=== PATIENT | male | born 1930 | race Caucasian/White ===

== ENCOUNTER 2019-05-04 09:23 | Inpatient (IN) | payer MEDICARE, BC ==
[~2019-05-04] VITALS: Ht 177.8 cm; Wt 57.2 kg
[2019-05-04 09:52] LABS: BASO % 0 % (0-3); EOS % 0 % (0-3); HEMOGLOBIN 10.8 g/dL (13.0-17.5); LYMPH # 0.8 x10^3/uL (1.0-4.8); LYMPH % 7 % (24-48); MEAN CORPUSCULAR HEMOGLOBIN 33 pg (25-35); MEAN CORPUSCULAR HGB CONC 34 g/dL (31-37); MEAN CORPUSCULAR VOLUME 96 fL (79-100); MONO # 1.1 x10^3/uL (0.0-1.1); MONO % 10 % (0-9); NEUT % 83 % (31-73); PLATELET COUNT 203 x10^3/uL (140-400); RED BLOOD COUNT 3.32 x10^6/uL (4.30-5.70); RED CELL DISTRIBUTION WIDTH 17.9 % (11.5-14.5); WHITE BLOOD COUNT 10.8 x10^3/uL (4.0-11.0)
[2019-05-04 10:00] LABS: CALCIUM 9.4 mg/dL (8.5-10.1); CREATININE 2.2 mg/dL (0.7-1.3); GFR 28.4; POTASSIUM 4.4 mmol/L (3.5-5.1)
[2019-05-04 10:15] LABS: ALBUMIN 2.6 g/dL (3.4-5.0); ALBUMIN/GLOBULIN RATIO 0.4 (1.0-1.7); MAGNESIUM 2.3 mg/dL (1.8-2.4); TOTAL BILIRUBIN 0.9 mg/dL (0.2-1.0); TOTAL PROTEIN 8.4 g/dL (6.4-8.2)
[2019-05-04 10:16] LABS: PROTHROMBIN TIME PATIENT 14.9 SEC (11.7-14.0)
--- NOTE | 2019-05-04 10:24 | RAD ---
Examination: CT HEAD WO CONTRAST History: Acute loss of consciousness Comparison/Correlation: None Findings: Axial images of the head were obtained without contrast. Atrophy is notable. Chronic ischemic change of the white matter is present. Bifrontal subdural hygromas are present. Right medial maxillary sinus wall defect is noted. Correlate with surgical history. Minimal polyp involvement of the ethmoid air cells noted. No depressed fracture. Impression: No intracranial hemorrhage. Oral PQRS Compliance Statement: One or more of the following individualized dose reduction techniques were utilized for this examination: 1. Automated exposure control 2. Adjustment of the mA and/or kV according to patient size 3. Use of iterative reconstruction technique Electronically signed by: Stefan Teran MD (05/04/2019 10:20 AM) [facility]
--- NOTE | 2019-05-04 10:29 | PHYS DOC ---
Past Medical History Past Medical History: No Pertinent History Past Surgical History: Other Additional Past Surgical Histo: hernia repair, hand surgery with hardware Additional Information: 1 ppd Alcohol Use: None Drug Use: None Adult General Chief Complaint Chief Complaint: ALTERED MENTAL STATUS HPI HPI Patient is a 88 year old male without known medical history who presents via EMS with complaint of confusion and fall. EMS reported that patient states he slipped from a chair last night around 9 PM and was not able to get up and was on the floor all night patient was agitated and confused this morning and his finally decided to call 911. EMS reported that patient had O2 sats of 85% at room air that improved with 2 L of nasal cannula to 95%. Patient is not able to give history and EMS reported that he was alert and oriented previously but patient's family stated that he has had increasing of confusion and memory loss for the last 7 months that getting worse today. Patient hasn't seen by a physician for many years and currently smokes cigarettes. Review of Systems Review of Systems Unable to obtain because of confusion Current Medications Current Medications Allergies Allergies Allergies Coded Allergies Type Severity Reaction Last Updated Verified No Known Drug Allergies 05/04/19 No Physical Exam Physical Exam Constitutional: Well nourished, moderate distress, non-toxic appearance. [] HENT: Normocephalic, atraumatic, bilateral external ears normal, oropharynx dry, no oral exudates, nose normal. [] Eyes: PERRLA, EOMI, conjunctiva normal, no discharge. [] Neck: Normal range of motion, no tenderness, supple, no stridor. [] Cardiovascular: Tachycardia, no murmur [] Lungs & Thorax: Decrease of bilateral air movement and rhonchi Abdomen: Bowel sounds normal, soft, no tenderness, no masses, no pulsatile masses. [] Skin: Warm, dry, no erythema, no rash. [] Back: No tenderness, no CVA tenderness. [] Extremities: No tenderness, no cyanosis, no clubbing, ROM intact, no edema. [] Neurologic: Alert and oriented X 1, normal motor function, normal sensory function, no focal deficits noted. [] Psychologic: Affect agitated. Current Patient Data Vital Signs Vital Signs Date Time Temp Pulse Resp B/P (MAP) Pulse Ox O2 Delivery O2 Flow Rate FiO2 05/04/19 09:30 98.7 88 22 138/77 (97) 88 Room Air 98.7 Lab Values Laboratory Tests Test 05/04/19 09:35 White Blood Count 10.8 x10^3/uL (4.0-11.0) Red Blood Count 3.32 x10^6/uL (4.30-5.70) L Hemoglobin 10.8 g/dL (13.0-17.5) L Hematocrit 32.0 % (39.0-53.0) L Mean Corpuscular Volume 96 fL (79-100) Mean Corpuscular Hemoglobin 33 pg (25-35) Mean Corpuscular Hemoglobin Concent 34 g/dL (31-37) Red Cell Distribution Width 17.9 % (11.5-14.5) H Platelet Count 203 x10^3/uL (140-400) Neutrophils (%) (Auto) 83 % (31-73) H Lymphocytes (%) (Auto) 7 % (24-48) L Monocytes (%) (Auto) 10 % (0-9) H Eosinophils (%) (Auto) 0 % (0-3) Basophils (%) (Auto) 0 % (0-3) Neutrophils # (Auto) 9.0 x10^3/uL (1.8-7.7) H Lymphocytes # (Auto) 0.8 x10^3/uL (1.0-4.8) L Monocytes # (Auto) 1.1 x10^3/uL (0.0-1.1) Eosinophils # (Auto) 0.0 x10^3/uL (0.0-0.7) Basophils # (Auto) 0.0 x10^3/uL (0.0-0.2) Prothrombin Time 14.9 SEC (11.7-14.0) H Prothrombin Time INR 1.2 (0.8-1.1) H Activated Partial Thromboplast Time 26 SEC (24-38) Sodium Level 135 mmol/L (136-145) L Potassium Level 4.4 mmol/L (3.5-5.1) Chloride Level 100 mmol/L (98-107) Carbon Dioxide Level 19 mmol/L (21-32) L Anion Gap 16 (6-14) H Blood Urea Nitrogen 34 mg/dL (8-26) H Creatinine 2.2 mg/dL (0.7-1.3) H Estimated GFR (Cockcroft-Gault) 28.4 BUN/Creatinine Ratio 15 (6-20) Glucose Level 98 mg/dL (70-99) Lactic Acid Level 4.1 mmol/L (0.4-2.0) *H Calcium Level 9.4 mg/dL (8.5-10.1) Magnesium Level 2.3 mg/dL (1.8-2.4) Total Bilirubin 0.9 mg/dL (0.2-1.0) Aspartate Amino Transferase (AST) 50 U/L (15-37) H Alanine Aminotransferase (ALT) 23 U/L (16-63) Alkaline Phosphatase 221 U/L (46-116) H Ammonia 18 mcmol/L (11-34) Creatine Kinase 1669 U/L (39-308) H Troponin I Quantitative 0.132 ng/mL (0.000-0.055) AL-Dnx-E-Type Natriuretic Peptide 3317 pg/mL (0-449) H Total Protein 8.4 g/dL (6.4-8.2) H Albumin 2.6 g/dL (3.4-5.0) L Albumin/Globulin Ratio 0.4 (1.0-1.7) L Ethyl Alcohol Level < 10 mg/dL (0-10) Laboratory Tests 05/04/19 09:35 Laboratory Tests 05/04/19 09:35 EKG EKG EKG interpreted by me. EKG at 0932 showed sinus tachycardia at rate of 108, left atrial abnormality, abnormal left axis deviation, low voltage QRS, left anterior fascicular block, poor R-wave progress in anteroseptal leads, no acute ST and T-wave elevation, normal NE and QT intervals, multiple artifact. Radiology/Procedures Radiology/Procedures [facility] [address] [place] [address] IMAGING REPORT Signed PATIENT: EMY US CACCOUNT: [id number] : 1930 LOCATION: ER AGE: 88 SEX: M EXAM STATUS: REG ER ORD. PHYSICIAN: SKYLER MEDEL MD REASON: ALOC PROCEDURE: CT HEAD WO CONTRAST Examination: CT HEAD WO CONTRAST History: Acute loss of consciousness Comparison/Correlation: None Findings: Axial images of the head were obtained without contrast. Atrophy is notable. Chronic ischemic change of the white matter is present. Bifrontal subdural hygromas are present. Right medial maxillary sinus wall defect is noted. Correlate with surgical history. Minimal polyp involvement of the ethmoid air cells noted. No depressed fracture. Impression: No intracranial hemorrhage. Oral PQRS Compliance Statement: One or more of the following individualized dose reduction techniques were utilized for this examination: 1. Automated exposure control 2. Adjustment of the mA and/or kV according to patient size 3. Use of iterative reconstruction technique Electronically signed by: Stefan Spain MD (05/04/2019 10:20 AM) [facility] [address] [place], [place] [id number] IMAGING REPORT Signed PATIENT: EMY US CACCOUNT: [id number] : 1930 LOCATION: ER AGE: 88 SEX: M EXAM STATUS: REG ER ORD. PHYSICIAN: SKYLER MEDEL MD REASON: ALOC PROCEDURE: PORTABLE CHEST 1V Examination: PORTABLE CHEST 1V History: Acute loss of consciousness Comparison/Correlation: None Findings: Upright frontal view of the chest were obtained. Heart size is normal. Emphysematous involvement of the lung coronado appears be present with a large bulla at the right apex. No pneumothorax identified. Interstitial thickening in the lung coronado is noted especially on the right. Dextroconvexity of the thoracic spine is present. The lateral convexity of the lower thoracic and upper lumbar spine noted. High riding bilateral lateral humeral heads noted. Undersurface remodeling of the right acromion. No acute fracture identified. Pulmonary hyperinflation suspected. Impression: Interstitial thickening of the lung coronado greater on the right. This may be chronic. Correlate with prior exams. Emphysematous involvement of the lung coronado. Pulmonary inflation. Electronically signed by: Stefan Spain MD (05/04/2019 10:24 AM) [facility] DICTATED and SIGNED BY: STEFAN SPAIN MD DATE: 05/04/19 1024 Course & Med Decision Making Course & Med Decision Making Pertinent Labs and Imaging studies reviewed. (See chart for details) Evaluation of patient in ER showed 88-year-old male patient who hasn't been seen by a physician for several years brought in by EMS because of confusion after a fall and spending all night on the floor. Patient was oriented 1 and agitated. Patient had hypoxia prior to arrival to ER and started on oxygen. Patient did not have fever or hypotension. Lactic acid was 4.1 and sepsis protocol was started with giving 30 mL/KG IV fluid and starting antibiotic. Because of agitation patient treated with 1 mg of Ativan with improvement of his agitation. Patient requiring admission for further evaluation and treatment. Discussed with Dr. Villalpando who is in agreement with admission. Discussed findings and plan with patient and family, who acknowledge understanding and agreement. Dragon Disclaimer Dragon Disclaimer This electronic medical record was generated, in whole or in part, using a voice recognition dictation system. Departure Departure Impression: Primary Impression: Severe sepsis Additional Impressions: Altered level of consciousness Renal insufficiency Anemia Elevated troponin I level Rhabdomyolysis Elevated liver function tests Elevated brain natriuretic peptide (BNP) level Hypoalbuminemia Disposition: ADMITTED INPATIENT (at 1048) Admitting Physician: CRYSTAL (Dr. Villalpando accepted admission at 1047) Condition: GUARDED Referrals: NO PCP (PCP) Critical Care Time Critical care time was 80 minutes exclusive of procedures. Date and Time of Reassessment Date: May 04, 2019 Time: 11:05 Fluid Challenge Is the fluid challenge complet: No IBW Target Volume Used: No BMI > 30: No Vital Signs Vital Signs: Vital Signs Date Time Temp Pulse Resp B/P (MAP) Pulse Ox O2 Delivery O2 Flow Rate FiO2 05/04/19 09:30 98.7 88 22 138/77 (97) 88 Room Air 98.7 Temperature Source: Oral Respirations Respiratory Pattern: Tachypnea Cardiovascular Pulse Rhythm: Regular Heart: Nml S1, S2, no murmurs Lung Sounds Breath Sounds: Rhonchi, Diminished Capillary Refil Capillary Refill: Rt Hand < 3 seconds Peripheral Pulse Pulse Location: Radial Pulse Strength: Normal (2+) Pulse Assessment Method: NIBP Integumentary Skin Moisture: Dry Problem Qualifiers Additional Impressions: Anemia Anemia type: unspecified type Qualified Codes: D64.9 - Anemia, unspecified Rhabdomyolysis Rhabdomyolysis type: traumatic Encounter type: sequela Qualified Codes: T79.6XXS - Traumatic ischemia of muscle, sequela SKYLER MEDEL MD May 04, 2019 10:29
[2019-05-04] MEDS ORDERED: IV NORMAL SALINE 1000ML BAG 1,000 ML IV ONE ×3 (10:30→11:00)
[2019-05-04] MEDS ORDERED: VANCOMYCIN 1GM IVPB FOR OMNI 250 ML IV ONE (11:00)
[2019-05-04] MEDS ORDERED: PIPERACILLIN/TAZOBACTAM 3.375 GM in IV NORMAL SALINE 50ML 50 ML IV ONE (11:00)
[2019-05-04 11:18] LABS: BASE EXCESS ABG -5 mmol/L (-3-3); HCO3 ABG 17 mmol/L (21-28); PCO2 ABG 23 mmHg (35-46); PO2 ABG 82 mmHg (65-108); SAT O2 ABG 96 % (92-99)
[2019-05-04 11:20] LABS: FIO2 ABG 32
--- NOTE | 2019-05-04 11:29 | PDOC1 ---
History and Physical Date of Admission: Date of Admission DATE: 05/04/19 TIME: 11:23 Chief Complaint: Problems: (1) Anemia (2) Renal insufficiency (3) Rhabdomyolysis (4) Altered level of consciousness (5) Elevated liver function tests (6) Severe sepsis (7) Elevated troponin I level Chief Complain: Mental status change and fall dementia History of Present Illness: HPI: This is an elderly male who lives in a long-term who fell out of his bed. He has baseline dementia but the long-term was concerned about him so sending to the emergency room. While here in the ER he has a lactic acidosis appears to be quite encephalopathic He is unable to contribute any other information He's currently being examined in room 2 where we are straight cathetering him and getting an ABG His lactic acid is high I told ER Dr. mccrary to be admitting him and we'll start some IV antibiotics and IV fluids Past Medical/Surgical History: PMH/PSH: Dementia Renal insufficiency Arthritis Hypertension Allergies: Allergies: Coded Allergies: No Known Drug Allergies (Unverified , 05/04/19) Family History: Family History: Hypertension Social History: Social Hisoty: He lives at a long-term he does not drink smoke or take drugs Current Medications: Current Medications Current Medications Sodium Chloride 1,000 ml @ 150 mls/hr 1X ONCE IV Last administered on 05/04/19at 10:43; Start 05/04/19 at 10:30; Stop 05/04/19 at 17:09 Lorazepam (Ativan Inj) 1 mg 1X ONCE IVP Last administered on 05/04/19at 10:47; Start 05/04/19 at 10:30; Stop 05/04/19 at 10:31; Status DC Sodium Chloride 1,000 ml @ 1,000 mls/hr 1X ONCE IV Last administered on 05/04/19at 11:00; Start 05/04/19 at 11:00; Stop 05/04/19 at 11:59 Sodium Chloride 1,000 ml @ 1,000 mls/hr 1X ONCE IV ; Start 05/04/19 at 11:00; Stop 05/04/19 at 11:59 Piperacillin Sod/ Tazobactam Sod 3.375 gm/Sodium Chloride 50 ml @ 100 mls/hr 1X ONCE IV ; Start 05/04/19 at 11:00; Stop 05/04/19 at 11:29 Vancomycin HCl 250 ml @ 250 mls/hr 1X ONCE IV ; Start 05/04/19 at 11:00; Stop 05/04/19 at 11:59 Levofloxacin/ Dextrose 150 ml @ 100 mls/hr 1X ONCE IV ; Start 05/04/19 at 11:00; Stop 05/04/19 at 12:29 Sodium Chloride 1,000 ml @ 150 mls/hr Q6H40M IV ; Start 05/04/19 at 11:04; Stop 05/05/19 at 11:03 ROS: Review of Systems Unable to obtain the patient is too confused Physical Exam: Vital Signs: Vital Signs Date Time Temp Pulse Resp B/P (MAP) Pulse Ox O2 Delivery O2 Flow Rate FiO2 05/04/19 09:30 98.7 88 22 138/77 (97) 88 Room Air 98.7 Physcial Exam: GEN: Extremely confused weak and frail HEENT: Normal cephalic, atraumatic, external auditory canals are patent EYES: Extraocular muscles are intact, pupil are equally round and reactive to light and accommodation MUSCULOSKELETAL: Frail and malnourished ENDOCRINE: No thyromegaly was palpated LYMPHATICS: No cervical chain or axillary nodes were noted HEMATOPOIETIC: No bruising NECK: Supple, no JVD, no thyromegaly was noted LUNGS: Clear to auscultation in all lung coronado without rhonchi or wheezing HEART: RRR, S!, S2 present. Peripheral pulses intact, no obvious murmurs noted ABDOMEN: Soft, nontender. Positive bowel sounds, no organomegaly, normal bowel sounds EXTREMITIES: Without clubbing, cyanosis, or edema. Pedal pulses intact. Negative Homans sign NEUROLOGIC: Extremely confused weak but awake and making eye contact PSYCHIATRIC: Depressed SKIN: No ulcerations or rashes, good skin turgor, no jaundice VASCULAR: Good capillary refill, neurovascular bundle appears to be intact Labs: Labs: Laboratory Tests Test 05/04/19 09:35 05/04/19 11:04 White Blood Count 10.8 x10^3/uL (4.0-11.0) Red Blood Count 3.32 x10^6/uL (4.30-5.70) Hemoglobin 10.8 g/dL (13.0-17.5) Hematocrit 32.0 % (39.0-53.0) Mean Corpuscular Volume 96 fL (79-100) Mean Corpuscular Hemoglobin 33 pg (25-35) Mean Corpuscular Hemoglobin Concent 34 g/dL (31-37) Red Cell Distribution Width 17.9 % (11.5-14.5) Platelet Count 203 x10^3/uL (140-400) Neutrophils (%) (Auto) 83 % (31-73) Lymphocytes (%) (Auto) 7 % (24-48) Monocytes (%) (Auto) 10 % (0-9) Eosinophils (%) (Auto) 0 % (0-3) Basophils (%) (Auto) 0 % (0-3) Neutrophils # (Auto) 9.0 x10^3/uL (1.8-7.7) Lymphocytes # (Auto) 0.8 x10^3/uL (1.0-4.8) Monocytes # (Auto) 1.1 x10^3/uL (0.0-1.1) Eosinophils # (Auto) 0.0 x10^3/uL (0.0-0.7) Basophils # (Auto) 0.0 x10^3/uL (0.0-0.2) Prothrombin Time 14.9 SEC (11.7-14.0) Prothromb Time International Ratio 1.2 (0.8-1.1) Activated Partial Thromboplast Time 26 SEC (24-38) Sodium Level 135 mmol/L (136-145) Potassium Level 4.4 mmol/L (3.5-5.1) Chloride Level 100 mmol/L (98-107) Carbon Dioxide Level 19 mmol/L (21-32) Anion Gap 16 (6-14) Blood Urea Nitrogen 34 mg/dL (8-26) Creatinine 2.2 mg/dL (0.7-1.3) Estimated GFR (Cockcroft-Gault) 28.4 BUN/Creatinine Ratio 15 (6-20) Glucose Level 98 mg/dL (70-99) Lactic Acid Level 4.1 mmol/L (0.4-2.0) Calcium Level 9.4 mg/dL (8.5-10.1) Magnesium Level 2.3 mg/dL (1.8-2.4) Total Bilirubin 0.9 mg/dL (0.2-1.0) Aspartate Amino Transf (AST/SGOT) 50 U/L (15-37) Alanine Aminotransferase (ALT/SGPT) 23 U/L (16-63) Alkaline Phosphatase 221 U/L (46-116) Ammonia 18 mcmol/L (11-34) Creatine Kinase 1669 U/L (39-308) Troponin I Quantitative 0.132 ng/mL (0.000-0.055) RE-Boq-H-Type Natriuretic Peptide 3317 pg/mL (0-449) Total Protein 8.4 g/dL (6.4-8.2) Albumin 2.6 g/dL (3.4-5.0) Albumin/Globulin Ratio 0.4 (1.0-1.7) Ethyl Alcohol Level < 10 mg/dL (0-10) O2 Saturation 96 % (92-99) Arterial Blood pH 7.48 (7.35-7.45) Arterial Blood pCO2 at Patient Temp 23 mmHg (35-46) Arterial Blood pO2 at Patient Temp 82 mmHg (65-108) Arterial Blood HCO3 17 mmol/L (21-28) Arterial Blood Base Excess -5 mmol/L (-3-3) FiO2 32 Laboratory Tests Test 05/04/19 09:35 05/04/19 11:04 White Blood Count 10.8 x10^3/uL (4.0-11.0) Red Blood Count 3.32 x10^6/uL (4.30-5.70) Hemoglobin 10.8 g/dL (13.0-17.5) Hematocrit 32.0 % (39.0-53.0) Mean Corpuscular Volume 96 fL (79-100) Mean Corpuscular Hemoglobin 33 pg (25-35) Mean Corpuscular Hemoglobin Concent 34 g/dL (31-37) Red Cell Distribution Width 17.9 % (11.5-14.5) Platelet Count 203 x10^3/uL (140-400) Neutrophils (%) (Auto) 83 % (31-73) Lymphocytes (%) (Auto) 7 % (24-48) Monocytes (%) (Auto) 10 % (0-9) Eosinophils (%) (Auto) 0 % (0-3) Basophils (%) (Auto) 0 % (0-3) Neutrophils # (Auto) 9.0 x10^3/uL (1.8-7.7) Lymphocytes # (Auto) 0.8 x10^3/uL (1.0-4.8) Monocytes # (Auto) 1.1 x10^3/uL (0.0-1.1) Eosinophils # (Auto) 0.0 x10^3/uL (0.0-0.7) Basophils # (Auto) 0.0 x10^3/uL (0.0-0.2) Prothrombin Time 14.9 SEC (11.7-14.0) Prothromb Time International Ratio 1.2 (0.8-1.1) Activated Partial Thromboplast Time 26 SEC (24-38) Sodium Level 135 mmol/L (136-145) Potassium Level 4.4 mmol/L (3.5-5.1) Chloride Level 100 mmol/L (98-107) Carbon Dioxide Level 19 mmol/L (21-32) Anion Gap 16 (6-14) Blood Urea Nitrogen 34 mg/dL (8-26) Creatinine 2.2 mg/dL (0.7-1.3) Estimated GFR (Cockcroft-Gault) 28.4 BUN/Creatinine Ratio 15 (6-20) Glucose Level 98 mg/dL (70-99) Lactic Acid Level 4.1 mmol/L (0.4-2.0) Calcium Level 9.4 mg/dL (8.5-10.1) Magnesium Level 2.3 mg/dL (1.8-2.4) Total Bilirubin 0.9 mg/dL (0.2-1.0) Aspartate Amino Transf (AST/SGOT) 50 U/L (15-37) Alanine Aminotransferase (ALT/SGPT) 23 U/L (16-63) Alkaline Phosphatase 221 U/L (46-116) Ammonia 18 mcmol/L (11-34) Creatine Kinase 1669 U/L (39-308) Troponin I Quantitative 0.132 ng/mL (0.000-0.055) OM-Dzu-C-Type Natriuretic Peptide 3317 pg/mL (0-449) Total Protein 8.4 g/dL (6.4-8.2) Albumin 2.6 g/dL (3.4-5.0) Albumin/Globulin Ratio 0.4 (1.0-1.7) Ethyl Alcohol Level < 10 mg/dL (0-10) O2 Saturation 96 % (92-99) Arterial Blood pH 7.48 (7.35-7.45) Arterial Blood pCO2 at Patient Temp 23 mmHg (35-46) Arterial Blood pO2 at Patient Temp 82 mmHg (65-108) Arterial Blood HCO3 17 mmol/L (21-28) Arterial Blood Base Excess -5 mmol/L (-3-3) FiO2 32 Images: Images PATIENT: EMY US CACCOUNT: [id number] : 1930 LOCATION: ER AGE: 88 SEX: M EXAM STATUS: REG ER ORD. PHYSICIAN: SKYLER MEDEL MD REASON: ALOC PROCEDURE: PORTABLE CHEST 1V Examination: PORTABLE CHEST 1V History: Acute loss of consciousness Comparison/Correlation: None Findings: Upright frontal view of the chest were obtained. Heart size is normal. Emphysematous involvement of the lung coronado appears be present with a large bulla at the right apex. No pneumothorax identified. Interstitial thickening in the lung coronado is noted especially on the right. Dextroconvexity of the thoracic spine is present. The lateral convexity of the lower thoracic and upper lumbar spine noted. High riding bilateral lateral humeral heads noted. Undersurface remodeling of the right acromion. No acute fracture identified. Pulmonary hyperinflation suspected. Impression: Interstitial thickening of the lung coronado greater on the right. This may be chronic. Correlate with prior exams. Emphysematous involvement of the lung coronado. Pulmonary inflation. CT the head was also done which did not show any acute changes Assessment/Plan Assessment/Plan Fall with encephalopathy and progression of dementia and sepsis Plan IV antibiotics IV fluids Sepsis protocol Home meds DVT prophylaxis Currently he is full code Baker to BSD Long-term prognosis extremely guarded at best as he is frail and has progression of dementia TATE LEWIS III DO May 04, 2019 11:29
[2019-05-04 11:57] LABS: BILIRUBIN,URINE NEGATIVE (NEG); CLARITY,URINE CLEAR; COLOR,URINE AMBER; NITRITE,URINE NEGATIVE (NEG); PH,URINE 5.5; PROTEIN,URINE 30 mg/dL (NEG-TRACE); UROBILINOGEN,URINE 0.2 mg/dL (0.2 mg/dL)
[2019-05-04] MEDS ORDERED: DIPHTH,PERTUSS(ACELL),TET TOX 0.5 ML DISP.SYRIN. VAX IM ONE (12:00)
[2019-05-04 12:06] LABS: BARBITURATES NEG (NEG); BENZODIAZEPINES NEG (NEG); CANNABINOIDS NEG (NEG); COCAINE NEG (NEG); METHADONE NEG (NEG); OPIATES NEG (NEG); PHENCYCLIDINE NEG (NEG)
[2019-05-04 12:15] LABS: AMPHETAMINE/METHAMPHETAMINE NEG (NEG)
[2019-05-04 12:20] LABS: BACTERIA,URINE FEW /HPF (0-FEW)
[2019-05-04] MEDS ORDERED: PANTOPRAZOLE IV PUSH 40 MG VIAL. IVP ONE (13:30)
[2019-05-04] MEDS: IV NORMAL SALINE 1000ML BAG 1,000 ML IV SCH ×2 (14:10→20:37)
--- NOTE | 2019-05-04 15:46 | EKG ---
[facility] [address] [place] [address] Test Date: 2019-05-04 Test Time: 09:32:28 Pat Name: EMY US Department: Room: Gender: M Director Of Rehabilitation And Wellness: : 1930 Requested By: SKYLER MEDEL Order Number: [id number] Reading MD: Measurements Intervals [place] Rate: 108 P: 90 AR: 148 QRS: -62 QRSD: 78 T: 75 QT: 308 QTc: 416 Interpretive Statements SINUS TACHYCARDIA LEFT ATRIAL ABNORMALITY ABNORMAL LEFT AXIS DEVIATION LOW LIMB LEAD VOLTAGE LEFT ANTERIOR FASCICULAR BLOCK QRS(T) CONTOUR ABNORMALITY CONSISTENT WITH ANTEROSEPTAL INFARCT AGE UNDETERMINED T ABNORMALITY IN HIGH LATERAL LEADS ABNORMAL ECG RI6.01 No previous ECG available for comparison
[2019-05-04 17:11] VITALS: BP 146/78
[2019-05-04 19:20] VITALS: BP 138/88
[2019-05-04] MEDS: NICOTINE 21MG PATCH. TD PRN (20:36)
[2019-05-04] MEDS ORDERED: MORPHINE SULFATE 2 MG/ML VIAL. IV PRN (22:45)
[2019-05-04] MEDS ORDERED: ONDANSETRON PF 4 MG/2 ML VIAL. IVP PRN (22:45)
[2019-05-04 23:00] VITALS: BP 143/69
[2019-05-05] MEDS: IV NORMAL SALINE 1000ML BAG 1,000 ML IV SCH ×2 (00:24→10:01)
[2019-05-05 03:05] VITALS: BP 139/73
[2019-05-05 06:52] VITALS: BP 136/72
--- NOTE | 2019-05-05 07:00 | NUR ---
patient is resting with his eyes closed. daughter at bedside. moves left sided extremities frequently and has mitten on left. was repoprted that the right side has severe weakness. was given ativan previous shift and has been resting
--- NOTE | 2019-05-05 09:38 | NUR ---
continues to rest with eyes closed. he was incontinent of urine; cleansed . his right side remains flaccid and moves left side frequently. daughter remains at bedside. oral care and face cleaned.
[2019-05-05] MEDS ORDERED: PIP/TAZO PER PHARMACY MC PRN (10:15)
[2019-05-05 11:05] VITALS: BP 133/75
[2019-05-05] MEDS: NICOTINE 21MG PATCH. TD PRN (11:42)
[2019-05-05] MEDS: PIPERACILLIN/TAZOBACTAM 2.25 GM in IV NORMAL SALINE 50ML 50 ML IV SCH ×3 (11:43→23:20)
--- NOTE | 2019-05-05 12:02 | NUR ---
NIH Stroke assesment attempted with patient, patient is alert but does not follow any commands, NIH filled out to best of this nurses ability since patient was not very verbal or followed any commands. Dr. crooks aware.
--- NOTE | 2019-05-05 12:33 | NUR ---
Jude is more awake. unable to determine if he comprehends commands; but does not follow commands. speech is garbled . right side remains flaccid at this time. several family members at bedside
--- NOTE | 2019-05-05 12:47 | NUR ---
SS following for discharge planning. SS reviewed pt chart. Pt is from home with spouse and is currently requiring oxygen. SS will continue to follow for discharge planning.
[2019-05-05] MEDS: PANTOPRAZOLE IV PUSH 40 MG VIAL. IVP SCH (13:15)
--- NOTE | 2019-05-05 13:38 | CONS ---
DATE OF CONSULTATION: PULMONARY CONSULTATION ATTENDING PHYSICIAN: Dr. Villalpando. REASON FOR CONSULTATION: COPD. HISTORY OF PRESENT ILLNESS: The patient is an 88-year-old male who has at least 55 years of tobacco use. He was found unresponsive at home and was not seen for at least 8-10 hours. He was brought into the hospital for further evaluation. The patient was noted to have a right-sided facial droop and weakness on the right side. Initial CT head did not reveal any acute hemorrhagic stroke. His ABGs showed a pH of 7.48, pCO2 of 23 and a pO2 of 82 with a bicarbonate of 17. He also was found to be in renal failure and troponin mildly elevated. He is not responsive. He opens eyes and is not in any obvious respiratory distress. I have reviewed the patient's chest x-ray. There is evidence of emphysema and slightly prominent interstitial thickening on the right side. PAST MEDICAL HISTORY: Significant for suspected COPD, could be severe. Possible dementia, arthritis and hypertension. PAST SURGICAL HISTORY: No recent surgeries. ALLERGIES: None. MEDICATIONS: Reviewed as listed in the [facility], including Zosyn. REVIEW OF SYSTEMS: Unable to obtain from the patient. PHYSICAL EXAMINATION: VITAL SIGNS: Reviewed. Blood pressure 133/75, afebrile, pulse ox 93% on 2 liters. NECK: Supple. LUNGS: With diminished breath sounds. CARDIOVASCULAR: With a regular rate. ABDOMEN: Soft. EXTREMITIES: With no pitting edema. He has right-sided facial droop. LABORATORY DATA: ABGs were reviewed. BUN and creatinine 34 and 2.2. Toxicology screen negative. IMPRESSION: 1. Underlying chronic obstructive pulmonary disease, clinically compensated without any exacerbation. 2. Abnormal chest x-ray with evidence of bullous lung disease in the right upper lobe and some prominent interstitial thickening on the right side. Etiology not so obvious. Could be parenchymal scarring. 3. Acute encephalopathy, likely ischemic cerebrovascular accident. 4. Acute kidney injury, likely early rhabdomyolysis. RECOMMENDATIONS: 1. From a pulmonary standpoint, we will continue p.r.n. bronchodilators. 2. Await MRI of the head results. 3. IV hydration. 4. Follow renal function. 5. Discussed with entire family. Discussed with RN. 6. Antibiotic per Infectious Disease. not much to add. will see PRN HARSH U. GRADY, MD DR: NOLAN/viri JOB#: [id number] / [id number]
--- NOTE | 2019-05-05 14:33 | PDOC ---
[facility] PROGRESS NOTE Chief Complaint Chief Complaint Chief Complain: Fall Mental status change Dementia Lactic acidosis Anemia Possible emphysema History of Present Illness History of Present Illness 05/05/19 Pt seen and examined PT no responsive during meeting, was unable to wake pt. Pt's family was present sduring encounter. 4 members were present and said that Pt never goes to the doctor. Said Pt seemed like normal self as of 04/21/19- pt was walking around and able to carry on a conversation at that point. Pt's chart was reviewed. CHARLES nurse. Vitals/I&O Vitals/I&O: Vital Signs Date Time Temp Pulse Resp B/P (MAP) Pulse Ox O2 Delivery O2 Flow Rate FiO2 05/05/19 11:05 98.4 87 20 133/75 (94) 93 Nasal Cannula 2.0 98.4 I & O 05/04/19 05/04/19 05/05/19 15:00 23:00 07:00 Intake Total 2200 ml 250 ml 0 ml Balance 2200 ml 250 ml 0 ml Physical Exam General: Other (NAD, alseep, nonresponsive ) Heart: Regular rate, No murmurs Lungs: Clear Abdomen: Normal bowel sounds, No tenderness Extremities: No clubbing, No cyanosis, No edema Skin: No rashes, No breakdown Labs Labs: Laboratory Tests Test 05/04/19 17:00 Troponin I Quantitative 0.151 ng/mL (0.000-0.055) Review of Systems Review of Systems: Pt was noncommunicative during meeting. Was unable to obtain an ROS. Assessment and Plan Assessmemt and Plan Assessment Fall Mental status change Dementia Lactic acidosis Anemia Possible emphysema Plan continue IV antibiotics continue IV fluids consult ID consult Neuro Sepsis protocol restart Home meds DVT prophylaxis Full code consulted pulmonary- will continue p.r.n. bronchodilators. Baker to BSD Long-term prognosis extremely guarded at best as he is frail and has progression of dementia Comment Review of Relevant I have reviewed the following items alyssa (where applicable) has been applied. Medications: Current Medications Medications (Trade) Dose Ordered Sig/Tru Route PRN Reason Start Time Stop Time Status Last Admin Dose Admin Nicotine (Nicoderm Cq 21mg) 1 patch PRN DAILY PRN TD SMOKING CESSATION 05/04/19 20:15 05/05/19 11:42 Ondansetron HCl (Zofran) 4 mg PRN Q4HRS PRN IVP NAUSEA/VOMITING 1ST CHOICE 05/04/19 22:45 05/04/19 23:16 Piperacillin Sod/ Tazobactam Sod 2.25 gm/Sodium Chloride 50 ml @ 100 mls/hr Q6HRS IV 05/05/19 11:00 05/05/19 11:43 Pantoprazole Sodium (PROTONIX VIAL for IV PUSH) 40 mg DAILYAC IVP 05/05/19 13:00 05/05/19 13:15 TATE LEWIS III DO May 05, 2019 14:33
--- NOTE | 2019-05-05 14:40 | PDOC2 ---
NEUROLOGY CONSULT Date of Admission Date of Admission DATE: 05/05/19 TIME: 14:34 Reason for Consult Reason for Consult: stroke Referring Physician Referring Physician: Dr. Villalpando Source Source: Caregiver (daughter), Chart review History of Present Illness History of Present Illness The patient is an 88-year-old right-handed male who fell out of his chair at home the night of 05/03. He was admitted here yesterday. I was consult at 11 AM this morning. The patient has been noted to have a aphasia and not moving the right side as well. He has no prior history of stroke, seizure, or head injury. At baseline he is at home and ambulates well, has some dementia. Past Medical History Cardiovascular: HTN GI: Other (hiatal hernia) Past Surgical History Past Surgical History: Hernia Repair, No pertinent history Family History Family History: Cancer Social History Social History , no alcohol, [id number] tobacco Current Medications Current Medications Current Medications Sodium Chloride 1,000 ml @ 150 mls/hr 1X ONCE IV Last administered on 05/04/19at 10:43; Start 05/04/19 at 10:30; Stop 05/04/19 at 17:09; Status DC Lorazepam (Ativan Inj) 1 mg 1X ONCE IVP Last administered on 05/04/19at 10:47; Start 05/04/19 at 10:30; Stop 05/04/19 at 10:31; Status DC Sodium Chloride 1,000 ml @ 1,000 mls/hr 1X ONCE IV Last administered on 05/04/19at 11:00; Start 05/04/19 at 11:00; Stop 05/04/19 at 12:21; Status DC Sodium Chloride 1,000 ml @ 1,000 mls/hr 1X ONCE IV Last administered on 05/04/19at 12:55; Start 05/04/19 at 11:00; Stop 05/04/19 at 12:21; Status DC Piperacillin Sod/ Tazobactam Sod 3.375 gm/Sodium Chloride 50 ml @ 100 mls/hr 1X ONCE IV Last administered on 05/04/19at 12:56; Start 05/04/19 at 11:00; Stop 05/04/19 at 11:29; Status DC Vancomycin HCl 250 ml @ 250 mls/hr 1X ONCE IV Last administered on 05/04/19at 15:06; Start 05/04/19 at 11:00; Stop 05/04/19 at 12:21; Status DC Levofloxacin/ Dextrose 150 ml @ 100 mls/hr 1X ONCE IV Last administered on 05/04/19at 13:31; Start 05/04/19 at 11:00; Stop 05/04/19 at 12:29; Status DC Sodium Chloride 1,000 ml @ 150 mls/hr Q6H40M IV Last administered on 05/05/19at 10:01; Start 05/04/19 at 11:04; Stop 05/05/19 at 11:03; Status DC Diphtheria/ Tetanus/Acell Pertussis (Boostrix) 0.5 ml ONCE ONCE VAX IM Last administered on 05/04/19at 13:29; Start 05/04/19 at 12:00; Stop 05/04/19 at 12:21; Status DC Pantoprazole Sodium (PROTONIX VIAL for IV PUSH) 40 mg 1X ONCE IVP Last administered on 05/04/19at 15:02; Start 05/04/19 at 13:30; Stop 05/04/19 at 13:31; Status DC Lorazepam (Ativan Inj) 1 mg PRN Q2HR PRN IVP ANXIETY / AGITATION Last administered on 05/05/19at 04:00; Start 05/04/19 at 13:45 Nicotine (Nicoderm Cq 21mg) 1 patch PRN DAILY PRN TD SMOKING CESSATION Last administered on 05/05/19at 11:42; Start 05/04/19 at 20:15 Ondansetron HCl (Zofran) 4 mg PRN Q4HRS PRN IVP NAUSEA/VOMITING 1ST CHOICE Last administered on 05/04/19at 23:16; Start 05/04/19 at 22:45 Morphine Sulfate (Morphine Sulfate) 2 mg PRN Q4HRS PRN IV SEVERE PAIN 7-10; Start 05/04/19 at 22:45 Piperacillin Sod/ Tazobactam Sod (Zosyn Per Pharmacy) 1 each PRN DAILY PRN MC SEE COMMENTS; Start 05/05/19 at 10:15 Piperacillin Sod/ Tazobactam Sod 2.25 gm/Sodium Chloride 50 ml @ 100 mls/hr Q6HRS IV Last administered on 05/05/19at 11:43; Start 05/05/19 at 11:00 Pantoprazole Sodium (PROTONIX VIAL for IV PUSH) 40 mg DAILYAC IVP Last administered on 05/05/19at 13:15; Start 05/05/19 at 13:00 Allergies Allergies: Coded Allergies: No Known Drug Allergies (Unverified , 05/04/19) ROS Review of System Negative for fever, chills, weight loss, shortness of breath, chest pain, indigestion, hematochezia, melena, and dysuria. Full 14-point review of systems is negative. Physical Exam Physical Examination General: Well-developed, well-nourished, white male, in no acute distress HEENT: Normocephalic andatraumatic. Temporal arteriespulsatile and nontender. Neck: Supple without bruit, no meningismus Musculoskeletal: Stability:see neurologic. Gait exam:see neurologic. Tone:see neurologic.Strength:see neurologic. Neurological: Mental Status:orientation, memory, attention span/concentration, language, fund of knowledge: Nonverbal, does not follow commands. Cranial Nerves:Pupils equal and reactive to light, extraocular movements areintact, visual coronado are full to confrontation. Facial sensation is normal. There is no facial asymmetry. Vestibulo-ocular reflex is intact. Palate elevates and tongue protrudes in midline. All other cranial related problems are negative except as mentioned before.Reflexes:2+ and symmetric with flexor plantar responses. Motor:Moves all extremities, less so on the right. Coordination:and gait:not cooperative. Sensory:not cooperative Vitals VITALS Vital Signs Date Time Temp Pulse Resp B/P (MAP) Pulse Ox O2 Delivery O2 Flow Rate FiO2 05/05/19 11:05 98.4 87 20 133/75 (94) 93 Nasal Cannula 2.0 98.4 Labs Labs Laboratory Tests Test 05/04/19 09:35 05/04/19 11:04 05/04/19 11:34 05/04/19 12:25 White Blood Count 10.8 x10^3/uL (4.0-11.0) Red Blood Count 3.32 x10^6/uL (4.30-5.70) Hemoglobin 10.8 g/dL (13.0-17.5) Hematocrit 32.0 % (39.0-53.0) Mean Corpuscular Volume 96 fL (79-100) Mean Corpuscular Hemoglobin 33 pg (25-35) Mean Corpuscular Hemoglobin Concent 34 g/dL (31-37) Red Cell Distribution Width 17.9 % (11.5-14.5) Platelet Count 203 x10^3/uL (140-400) Neutrophils (%) (Auto) 83 % (31-73) Lymphocytes (%) (Auto) 7 % (24-48) Monocytes (%) (Auto) 10 % (0-9) Eosinophils (%) (Auto) 0 % (0-3) Basophils (%) (Auto) 0 % (0-3) Neutrophils # (Auto) 9.0 x10^3/uL (1.8-7.7) Lymphocytes # (Auto) 0.8 x10^3/uL (1.0-4.8) Monocytes # (Auto) 1.1 x10^3/uL (0.0-1.1) Eosinophils # (Auto) 0.0 x10^3/uL (0.0-0.7) Basophils # (Auto) 0.0 x10^3/uL (0.0-0.2) Prothrombin Time 14.9 SEC (11.7-14.0) Prothromb Time International Ratio 1.2 (0.8-1.1) Activated Partial Thromboplast Time 26 SEC (24-38) Sodium Level 135 mmol/L (136-145) Potassium Level 4.4 mmol/L (3.5-5.1) Chloride Level 100 mmol/L (98-107) Carbon Dioxide Level 19 mmol/L (21-32) Anion Gap 16 (6-14) Blood Urea Nitrogen 34 mg/dL (8-26) Creatinine 2.2 mg/dL (0.7-1.3) Estimated GFR (Cockcroft-Gault) 28.4 BUN/Creatinine Ratio 15 (6-20) Glucose Level 98 mg/dL (70-99) Lactic Acid Level 4.1 mmol/L (0.4-2.0) 2.5 mmol/L (0.4-2.0) Calcium Level 9.4 mg/dL (8.5-10.1) Magnesium Level 2.3 mg/dL (1.8-2.4) Total Bilirubin 0.9 mg/dL (0.2-1.0) Aspartate Amino Transf (AST/SGOT) 50 U/L (15-37) Alanine Aminotransferase (ALT/SGPT) 23 U/L (16-63) Alkaline Phosphatase 221 U/L (46-116) Ammonia 18 mcmol/L (11-34) Creatine Kinase 1669 U/L (39-308) Troponin I Quantitative 0.132 ng/mL (0.000-0.055) KB-Dit-K-Type Natriuretic Peptide 3317 pg/mL (0-449) Total Protein 8.4 g/dL (6.4-8.2) Albumin 2.6 g/dL (3.4-5.0) Albumin/Globulin Ratio 0.4 (1.0-1.7) Ethyl Alcohol Level < 10 mg/dL (0-10) O2 Saturation 96 % (92-99) Arterial Blood pH 7.48 (7.35-7.45) Arterial Blood pCO2 at Patient Temp 23 mmHg (35-46) Arterial Blood pO2 at Patient Temp 82 mmHg (65-108) Arterial Blood HCO3 17 mmol/L (21-28) Arterial Blood Base Excess -5 mmol/L (-3-3) FiO2 32 Urine Collection Type U cath Urine Color Alicia Urine Clarity Clear Urine pH 5.5 Urine Specific Tappen 1.020 Urine Protein 30 mg/dL (NEG-TRACE) Urine Glucose (UA) Negative mg/dL (NEG) Urine Ketones (Stick) Trace mg/dL (NEG) Urine Blood Trace (NEG) Urine Nitrite Negative (NEG) Urine Bilirubin Negative (NEG) Urine Urobilinogen Dipstick 0.2 mg/dL (0.2 mg/dL) Urine Leukocyte Esterase Negative (NEG) Urine RBC 3-5 /HPF (0-2) Urine WBC 1-4 /HPF (0-4) Urine Squamous Epithelial Cells None /LPF Urine Bacteria Few /HPF (0-FEW) Urine Opiates Screen Neg (NEG) Urine Methadone Screen Neg (NEG) Urine Barbiturates Neg (NEG) Urine Phencyclidine Screen Neg (NEG) Urine Amphetamine/Methamphetamine Neg (NEG) Urine Benzodiazepines Screen Neg (NEG) Urine Cocaine Screen Neg (NEG) Urine Cannabinoids Screen Neg (NEG) Urine Ethyl Alcohol Neg (NEG) Test 05/04/19 13:40 05/04/19 17:00 Troponin I Quantitative 0.136 ng/mL (0.000-0.055) 0.151 ng/mL (0.000-0.055) Laboratory Tests Test 05/04/19 17:00 Troponin I Quantitative 0.151 ng/mL (0.000-0.055) Images Images CT HEAD WO CONTRAST History: Acute loss of consciousness Comparison/Correlation: None Findings: Axial images of the head were obtained without contrast. Atrophy is notable. Chronic ischemic change of the white matter is present. Bifrontal subdural hygromas are present. Right medial maxillary sinus wall defect is noted. Correlate with surgical history. Minimal polyp involvement of the ethmoid air cells noted. No depressed fracture. Impression: No intracranial hemorrhage. Assessment/Plan Assessment/Plan Impression: Suspect left hemisphere stroke, consider metabolic encephalopathy, doubt ongoing seizure activity. Recommendations: MRI of the brain Echocardiogram Carotid Doppler studies Aspirin Further studies depending on the results of the above Rehabilitation modalities Also see stroke orders Discussed with patient's daughter. Thank you for letting me help with the patient's care. CARMEN RITTER MD May 05, 2019 14:40
[2019-05-05] MEDS ORDERED: ACETAMINOPHEN 650 MG SUPP.RECT. PR PRN (14:45)
[2019-05-05] MEDS ORDERED: LABETALOL 20 MG/4 ML DISP.SYRIN. IVP PRN (14:45)
[2019-05-05] MEDS ORDERED: ASPIRIN RECTAL 300 MG SUPP. PR PRN (14:45)
[2019-05-05] MEDS ORDERED: ACETAMINOPHEN 325 MG TABLET. PO PRN (14:45)
--- NOTE | 2019-05-05 14:48 | CONS ---
DATE OF CONSULTATION: 05/05/2019 REQUESTING PHYSICIAN: Dr. Villalpando. REASON FOR CONSULTATION: Possible sepsis, lactic acidosis. HISTORY OF PRESENT ILLNESS: This is an 88-year-old gentleman who has not seen a physician for years as according to family, he does not believe in going to the doctor. The patient was found down. He fell on Friday and apparently Friday that he was found down on the floor from the chair. The patient was brought in. The patient has encephalopathy. The patient had lactic acid 4.1, elevated BUN and creatinine, elevated troponin, elevated CK. The patient has been supported with some hydration and started on Zosyn. CT of the head was negative for any bleed. Chest x-ray with some chronic changes and emphysematous changes, no acute infiltrate found. The patient is barely arousable. No nausea, vomiting, diarrhea or fever noted. PAST MEDICAL HISTORY: Unknown as the patient has not been to the physician for years, although he looks like he has COPD, has had hiatal hernia. SOCIAL HISTORY: Negative for drug use, but he does smoke and he does drink. ALLERGIES: No known drug allergies. CURRENT MEDICATIONS: Reviewed. REVIEW OF SYSTEMS: As per HPI, all other systems reviewed are negative. PHYSICAL EXAMINATION: GENERAL: Alert, somnolent, barely arousable gentleman, not in distress. VITAL SIGNS: Stable, afebrile. HEENT: Both pupils are round and reacting. No conjunctival lesion, no lesion in the mouth. NECK: Supple, no JVP, no lymphadenopathy. LUNGS: Decreased breath sounds bilaterally. HEART: S1, S2 regular. No gallop or murmur. ABDOMEN: Soft, nontender, no organomegaly. EXTREMITIES: No edema, cyanosis. SKIN: Unremarkable. NEUROLOGIC: The patient neurologically does not follow command; encephalopathic, barely arousable; some spontaneous extremity movements are present, although it cannot be judged clearly. LABORATORY DATA: White count is 10.8, platelets are normal. BUN and creatinine is 34 and 2.2. Lactic acid 4.1, which has come down to 2.5. Drug screen was negative. Urinalysis unremarkable. Cultures are pending. Blood culture so far negative. Chest x-ray and CT as I mentioned in HPI. IMPRESSION: 1. Encephalopathy, possible patient had stroke. 2. Lactic acidosis may have been secondary to dehydration, may have had infection, unable to rule it out yet. 3. Suspected aspiration with encephalopathy. 4. Chronic obstructive pulmonary disease. 5. Renal failure. RECOMMENDATIONS: 1. Hydration. 2. Supportive care. 3. Agree with Zosyn. 4. May need MRI of the head down the road and we will discuss with the family at the bedside, discussed with Dr. Orourke. Thank you very much, Dr. Villalpando, for giving me the opportunity to participate in this patient's care. NAYLA MCCONNELL MD DR: CAREY/viri JOB#: [id number] / [id number] Y
[2019-05-05 15:00] VITALS: BP 108/55
--- NOTE | 2019-05-05 15:19 | RAD ---
EXAM: Carotid Doppler sonogram. HISTORY: Cerebral infarction. TECHNIQUE: Ellis scale and color Doppler sonographic evaluation of the neck with spectral waveform analysis was performed and static images are submitted for review. FINDINGS: The exam is limited due to combative patient behavior. The peak systolic velocity within the right common carotid artery is 83 cm/sec. The peak systolic velocity within the right internal carotid artery is 75 cm/sec and the end diastolic velocity within the right internal carotid artery is 17 cm/sec. The right ICA/CCA ratio is 0.91. The peak systolic velocity within the left common carotid artery is 91 cm/sec. The peak systolic velocity within the left internal carotid artery is 85 cm/sec and the end diastolic velocity within the left internal carotid artery is 20 cm/sec. The left ICA/CCA ratio is 0.97. There is normal antegrade flow within the left vertebral artery. The right vertebral artery is not seen due to patient combative behavior. IMPRESSION: No Doppler evidence of hemodynamically significant stenosis, with evaluation limited due to patient combative behavior. PQRS Compliance Statement - Stenosis calculations for CT, MR and conventional angiography are based upon measurement of the distal ICA diameter in accordance with the NASCET methodology. Stenosis calculations for carotid ultrasound studies are derived from validated velocity criteria which are known to correlate with the NASCET methodology. Electronically signed by: Nicole Rai MD (05/05/2019 3:16 PM) [place] [id number]
--- NOTE | 2019-05-05 16:14 | RAD ---
Study: MRI BRAIN W/O CONTRAST Date: 05/05/2019 2:31 PM Indication: Cerebrovascular accident. Altered mental status. Comparison: Correlation is made to the CT of the head from 05/04/2019. Technique: Multiplanar multisequence MRI of the brain was performed without intravenous contrast using the standard protocol. Findings: The study is severely degraded due to motion artifact. Multifocal restricted diffusion with greatest involvement of the posterior and medial left temporal lobe and left thalamus but with smaller foci of involvement involving the left occipital lobe. There appears to be a focus of restricted diffusion at the far superior aspect left cerebellar hemisphere on image 7 series 7. Faint additional areas of increased signal on the diffusion-weighted sequence such as within the bilateral subcortical white matter in the posterior frontal region seen bilaterally on image 18 series 7, right temporal-occipital region on images 11 and 12 series 7 and lateral aspect of the left cerebellar hemisphere on image 4 series 7 are indeterminant could represent regions of T2 shine through from prior ischemia when correlating with T2 sequences. There is the suggestion of faint petechial staining at the right temporal-occipital region further suggesting a remote ischemic event at this location. Scattered foci of bihemispheric subcortical white matter and periventricular FLAIR signal elevation which also involves the wendy. No confluent intracranial hemorrhage. Generalized parenchymal volume loss with ex vacuo ventricular prominence. Extra-axial CSF signal diffusely along the right more so than left cerebellar hemispheres with intermixed tracking vessels. No extra-axial fluid collection with associated mass effect. No midline shift. IMPRESSION: 1. The study is severely degraded due to motion artifact 2. Multifocal restricted diffusion compatible with acute or subacute infarcts mainly involving the posterior and medial left temporal lobe and left thalamus but with intermittent involvement of the left occipital lobe as well. Potential small focus of restricted diffusion within the far superior aspect left cerebellar hemisphere. Additional less hyperintense regions of increased signal on the diffusion-weighted sequence elsewhere, as detailed above, is indeterminant for recent ischemia and could represent T2 shine through from prior infarcts. 3. Findings involving the bihemispheric subcortical and periventricular white matter as well as the brainstem in keeping with the sequela of chronic microvascular ischemic change. Probable faint area of petechial staining at the right temporal-occipital region from a remote infarct. No confluent intracranial hemorrhage. 4. Senescent changes with prominence of the CSF containing spaces. No localized extra-axial fluid collection with mass effect on the brain. No midline shift. Electronically signed by: POWER WELDON MD (05/05/2019 4:12 PM) [facility] [place]
[2019-05-05 19:00] VITALS: BP 129/64
[2019-05-05 23:00] VITALS: BP 105/66
[2019-05-06 03:00] VITALS: BP 146/70
[2019-05-06 05:12] LABS: BASO % 0 % (0-3); EOS % 0 % (0-3); HEMATOCRIT 27.9 % (39.0-53.0); HEMOGLOBIN 9.4 g/dL (13.0-17.5); LYMPH # 0.7 x10^3/uL (1.0-4.8); LYMPH % 10 % (24-48); MEAN CORPUSCULAR HEMOGLOBIN 33 pg (25-35); MEAN CORPUSCULAR HGB CONC 34 g/dL (31-37); MEAN CORPUSCULAR VOLUME 98 fL (79-100); MONO # 0.7 x10^3/uL (0.0-1.1); MONO % 9 % (0-9); NEUT # 6.4 x10^3/uL (1.8-7.7); NEUT % 81 % (31-73); PLATELET COUNT 127 x10^3/uL (140-400); RED BLOOD COUNT 2.86 x10^6/uL (4.30-5.70); RED CELL DISTRIBUTION WIDTH 17.9 % (11.5-14.5); WHITE BLOOD COUNT 7.8 x10^3/uL (4.0-11.0)
[2019-05-06] MEDS: PIPERACILLIN/TAZOBACTAM 2.25 GM in IV NORMAL SALINE 50ML 50 ML IV SCH ×2 (05:21→12:00)
[2019-05-06 05:32] LABS: CALCIUM 8.7 mg/dL (8.5-10.1); CREATININE 1.8 mg/dL (0.7-1.3); GFR 35.8; POTASSIUM 4.2 mmol/L (3.5-5.1)
[2019-05-06 07:00] VITALS: BP 143/70
[2019-05-06] MEDS ORDERED: ASPIRIN ENTERIC COATED 325 MG TABLET.DR. PO SCH (08:00)
[2019-05-06] MEDS: PANTOPRAZOLE IV PUSH 40 MG VIAL. IVP SCH (08:12)
--- NOTE | 2019-05-06 08:55 | PDOC ---
Infectious Disease Note Subjective Subjective pt opens eyes and mumbles ROS ROS no n/v/d/fever Vital Sign Vital Signs Vital Signs Date Time Temp Pulse Resp B/P (MAP) Pulse Ox O2 Delivery O2 Flow Rate FiO2 05/06/19 07:00 97.8 84 20 143/70 (94) 90 Nasal Cannula 3.0 97.8 Physical Exam PHYSICAL EXAM GENERAL: Alert, somnolent, barely arousable gentleman, not in distress. VITAL SIGNS: Stable, afebrile. HEENT: Both pupils are round and reacting. No conjunctival lesion, no lesion in the mouth. NECK: Supple, no JVP, no lymphadenopathy. LUNGS: Decreased breath sounds bilaterally. HEART: S1, S2 regular. No gallop or murmur. ABDOMEN: Soft, nontender, no organomegaly. EXTREMITIES: No edema, cyanosis. SKIN: Unremarkable. NEUROLOGIC: The patient neurologically does not follow command; encephalopathic, barely arousable; some spontaneous extremity movements are present, although it cannot be judged clearly. Labs Lab Laboratory Tests Test 05/06/19 05:00 White Blood Count 7.8 x10^3/uL (4.0-11.0) Red Blood Count 2.86 x10^6/uL (4.30-5.70) Hemoglobin 9.4 g/dL (13.0-17.5) Hematocrit 27.9 % (39.0-53.0) Mean Corpuscular Volume 98 fL (79-100) Mean Corpuscular Hemoglobin 33 pg (25-35) Mean Corpuscular Hemoglobin Concent 34 g/dL (31-37) Red Cell Distribution Width 17.9 % (11.5-14.5) Platelet Count 127 x10^3/uL (140-400) Neutrophils (%) (Auto) 81 % (31-73) Lymphocytes (%) (Auto) 10 % (24-48) Monocytes (%) (Auto) 9 % (0-9) Eosinophils (%) (Auto) 0 % (0-3) Basophils (%) (Auto) 0 % (0-3) Neutrophils # (Auto) 6.4 x10^3/uL (1.8-7.7) Lymphocytes # (Auto) 0.7 x10^3/uL (1.0-4.8) Monocytes # (Auto) 0.7 x10^3/uL (0.0-1.1) Eosinophils # (Auto) 0.0 x10^3/uL (0.0-0.7) Basophils # (Auto) 0.0 x10^3/uL (0.0-0.2) Sodium Level 144 mmol/L (136-145) Potassium Level 4.2 mmol/L (3.5-5.1) Chloride Level 111 mmol/L (98-107) Carbon Dioxide Level 16 mmol/L (21-32) Anion Gap 17 (6-14) Blood Urea Nitrogen 29 mg/dL (8-26) Creatinine 1.8 mg/dL (0.7-1.3) Estimated GFR (Cockcroft-Gault) 35.8 Glucose Level 76 mg/dL (70-99) Calcium Level 8.7 mg/dL (8.5-10.1) Triglycerides Level 109 mg/dL (0-150) Cholesterol Level 135 mg/dL (0-200) LDL Cholesterol, Calculated 79 mg/dL (0-100) VLDL Cholesterol, Calculated 22 mg/dL (0-40) Non-HDL Cholesterol Calculated 101 mg/dL (0-129) HDL Cholesterol 34 mg/dL (40-60) Cholesterol/HDL Ratio 4.0 Micro Microbiology 05/04/19 Blood Culture - Preliminary, Resulted NO GROWTH AFTER 1 DAY Objective Assessment IMPRESSION: 1. Encephalopathy, possible. The patient had stroke. 2. Lactic acidosis may have been secondary to dehydration, may have had infection, unable to rule it out yet. 3. Suspected aspiration with encephalopathy. 4. Chronic obstructive pulmonary disease. 5. Renal failure. MRI 1. The study is severely degraded due to motion artifact 2. Multifocal restricted diffusion compatible with acute or subacute infarcts mainly involving the posterior and medial left temporal lobe and left thalamus but with intermittent involvement of the left occipital lobe as well. Potential small focus of restricted diffusion within the far superior aspect left cerebellar hemisphere. Additional less hyperintense regions of increased signal on the diffusion-weighted sequence elsewhere, as detailed above, is indeterminant for recent ischemia and could represent T2 shine through from prior infarcts. 3. Findings involving the bihemispheric subcortical and periventricular white matter as well as the brainstem in keeping with the sequela of chronic microvascular ischemic change. Probable faint area of petechial staining at the right temporal-occipital region from a remote infarct. No confluent intracranial hemorrhage. 4. Senescent changes with prominence of the CSF containing spaces. No localized extra-axial fluid collection with mass effect on the brain. No midline shift. Plan Plan of Care cont zosyn family to decide further care, palliative vs cont aggressive care supportive care NAYLA MCCONENLL MD May 06, 2019 08:55
[2019-05-06 10:56] VITALS: BP 104/58
--- NOTE | 2019-05-06 11:51 | CARD ---
MR#: [id number] Date of Study: 05/06/2019 Ordering Physician: CARMEN RITTER, Referring Physician: CARMEN RITTER, Tech: Jonna Elizalde APPROVED REPORT EXAM: Two-dimensional and M-mode echocardiogram with Doppler and color Doppler. Other Information Quality : AverageHR: 117bpm Technically limited study due to Labored deep breathing INDICATION CVA/TIA Elevated Troponin RISK FACTORS Smoking 2D DIMENSIONS RVDd2.6 (2.9-3.5cm)Left Atrium(2D)3.2 (1.6-4.0cm) IVSd0.7 (0.7-1.1cm)Aortic Root(2D)3.7 (2.0-3.7cm) LVDd4.9 (3.9-5.9cm)LVOT Diameter2.1 (1.8-2.4cm) PWd1.0 (0.7-1.1cm)LVDs3.1 (2.5-4.0cm) FS (%) 36.8 %SV75.6 ml LVEF(%)66.4 (>50%) Aortic Valve AoV Peak Olegario.110.5cm/sAoV VTI21.2cm AO Peak GR.4.9mmHgLVOT VTI 17.97cm AO Mean GR.2mmHg Mitral Valve MV E Wjqpmdks14.5cm/sMV E Peak Gr.3mmHg MV DECEL [id number] A Cptaaidl05.0cm/s MV E Mean Gr.1mmHgE/A Ratio1.0 TDI Lateral E' P. V7.92cm/sMedial E' P. V5.15cm/s E/Lateral E'8.3E/Medial E'12.7 Tricuspid Valve TR P. Xnbnvvmy790sn/sRAP EVOIYGYF7blHn TR Peak Gr.83djGuUZDH19vfMb Pulmonary Vein S1 Idlfmxlh52.0cm/sS2 Ekwmvdxb20.37cm/s D2 Kqgbvqty45.4cm/sPVa wvnwhdqg045sgrh LEFT VENTRICLE The left ventricle is normal size. There is normal left ventricular wall thickness. The left ventricu lar systolic function is normal. The Ejection Fraction is 55-60%. There is normal LV segmental wall m otion. RIGHT VENTRICLE The right ventricle is normal size. There is normal right ventricular wall thickness. The right ventr icular systolic function is normal. ATRIA The left atrium size is normal. The right atrium size is normal. Interatrial septum not well visualiz ed. AORTIC VALVE The aortic valve is thickened but opens well. Doppler and Color Flow revealed no significant aortic r egurgitation. There is no significant aortic valvular stenosis. MITRAL VALVE The mitral valve is thickened but opens well. There is no evidence of mitral valve prolapse. There is no mitral valve stenosis. Doppler and Color-flow revealed trace to mild mitral regurgitation. TRICUSPID VALVE The tricuspid valve is normal in structure and function. Doppler and Color Flow revealed mild tricusp id regurgitation with an estimated PAP of 61 mmHg. There is no tricuspid valve stenosis. PULMONIC VALVE The pulmonic valve is not well visualized. Doppler and Color Flow revealed no pulmonic valvular regur gitation. GREAT VESSELS The aortic root is normal in size. The IVC was not visualized. PERICARDIAL EFFUSION There is no evidence of significant pericardial effusion. Critical Notification Critical Value: No <Conclusion> The left ventricular systolic function is normal. The Ejection Fraction is 55-60%. There is normal LV segmental wall motion. Trace to mild mitral regurgitation. Mild tricuspid regurgitation with an estimated PAP of 61 mmHg. There is no evidence of significant pericardial effusion. Signed by : Issac Farah, Electronically Approved : 05/06/2019 11:51:25
--- NOTE | 2019-05-06 12:00 | NUR ---
Emar Documentation: 0800 and 1200 dose of Zosyn non-administered per family, they want patient to be palliative care and no antibiotics.
--- NOTE | 2019-05-06 13:12 | PDOC ---
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 He is 88 years old, has had devastating bilateral strokes, worse in the left hemisphere, affecting language as well as motor power at least on the right side if not both sides. She will discuss with rest of family members whether to switc h to palliative care. Otherwise, the patient most likely will need a PEG placement. Aspirin Not a statin candidate, NPO now Also see stroke orders Subjective none Objective Vital Signs Date Time Temp Pulse Resp B/P (MAP) Pulse Ox O2 Delivery O2 Flow Rate FiO2 05/06/19 10:56 98.6 78 20 104/58 (73) 94 Nasal Cannula 4.0 98.6 Intake and Output 05/06/19 07:00 Intake Total 0 ml Balance 0 ml Intake Oral 0 ml # Voids 6 PHYSICAL EXAM Eyes open, nonverbal, does not follow commands PERRL. EOMI. CN: no focal findings. Muscle tone: normal. Muscle strength: Moves all extremities, less so on the right DTR: 2+ Plantar reflex: Flexor Gait: not examined Sensory exam: Not cooperative Cerebellar: Not cooperative Review of Relevant I have reviewed the following items alyssa (where applicable) has been applied. Labs Laboratory Tests Test 05/04/19 13:40 05/04/19 17:00 05/06/19 05:00 Troponin I Quantitative 0.136 ng/mL (0.000-0.055) 0.151 ng/mL (0.000-0.055) White Blood Count 7.8 x10^3/uL (4.0-11.0) Red Blood Count 2.86 x10^6/uL (4.30-5.70) Hemoglobin 9.4 g/dL (13.0-17.5) Hematocrit 27.9 % (39.0-53.0) Mean Corpuscular Volume 98 fL (79-100) Mean Corpuscular Hemoglobin 33 pg (25-35) Mean Corpuscular Hemoglobin Concent 34 g/dL (31-37) Red Cell Distribution Width 17.9 % (11.5-14.5) Platelet Count 127 x10^3/uL (140-400) Neutrophils (%) (Auto) 81 % (31-73) Lymphocytes (%) (Auto) 10 % (24-48) Monocytes (%) (Auto) 9 % (0-9) Eosinophils (%) (Auto) 0 % (0-3) Basophils (%) (Auto) 0 % (0-3) Neutrophils # (Auto) 6.4 x10^3/uL (1.8-7.7) Lymphocytes # (Auto) 0.7 x10^3/uL (1.0-4.8) Monocytes # (Auto) 0.7 x10^3/uL (0.0-1.1) Eosinophils # (Auto) 0.0 x10^3/uL (0.0-0.7) Basophils # (Auto) 0.0 x10^3/uL (0.0-0.2) Sodium Level 144 mmol/L (136-145) Potassium Level 4.2 mmol/L (3.5-5.1) Chloride Level 111 mmol/L (98-107) Carbon Dioxide Level 16 mmol/L (21-32) Anion Gap 17 (6-14) Blood Urea Nitrogen 29 mg/dL (8-26) Creatinine 1.8 mg/dL (0.7-1.3) Estimated GFR (Cockcroft-Gault) 35.8 Glucose Level 76 mg/dL (70-99) Calcium Level 8.7 mg/dL (8.5-10.1) Triglycerides Level 109 mg/dL (0-150) Cholesterol Level 135 mg/dL (0-200) LDL Cholesterol, Calculated 79 mg/dL (0-100) VLDL Cholesterol, Calculated 22 mg/dL (0-40) Non-HDL Cholesterol Calculated 101 mg/dL (0-129) HDL Cholesterol 34 mg/dL (40-60) Cholesterol/HDL Ratio 4.0 Laboratory Tests Test 05/06/19 05:00 White Blood Count 7.8 x10^3/uL (4.0-11.0) Red Blood Count 2.86 x10^6/uL (4.30-5.70) Hemoglobin 9.4 g/dL (13.0-17.5) Hematocrit 27.9 % (39.0-53.0) Mean Corpuscular Volume 98 fL (79-100) Mean Corpuscular Hemoglobin 33 pg (25-35) Mean Corpuscular Hemoglobin Concent 34 g/dL (31-37) Red Cell Distribution Width 17.9 % (11.5-14.5) Platelet Count 127 x10^3/uL (140-400) Neutrophils (%) (Auto) 81 % (31-73) Lymphocytes (%) (Auto) 10 % (24-48) Monocytes (%) (Auto) 9 % (0-9) Eosinophils (%) (Auto) 0 % (0-3) Basophils (%) (Auto) 0 % (0-3) Neutrophils # (Auto) 6.4 x10^3/uL (1.8-7.7) Lymphocytes # (Auto) 0.7 x10^3/uL (1.0-4.8) Monocytes # (Auto) 0.7 x10^3/uL (0.0-1.1) Eosinophils # (Auto) 0.0 x10^3/uL (0.0-0.7) Basophils # (Auto) 0.0 x10^3/uL (0.0-0.2) Sodium Level 144 mmol/L (136-145) Potassium Level 4.2 mmol/L (3.5-5.1) Chloride Level 111 mmol/L (98-107) Carbon Dioxide Level 16 mmol/L (21-32) Anion Gap 17 (6-14) Blood Urea Nitrogen 29 mg/dL (8-26) Creatinine 1.8 mg/dL (0.7-1.3) Estimated GFR (Cockcroft-Gault) 35.8 Glucose Level 76 mg/dL (70-99) Calcium Level 8.7 mg/dL (8.5-10.1) Triglycerides Level 109 mg/dL (0-150) Cholesterol Level 135 mg/dL (0-200) LDL Cholesterol, Calculated 79 mg/dL (0-100) VLDL Cholesterol, Calculated 22 mg/dL (0-40) Non-HDL Cholesterol Calculated 101 mg/dL (0-129) HDL Cholesterol 34 mg/dL (40-60) Cholesterol/HDL Ratio 4.0 Microbiology 05/04/19 Blood Culture - Preliminary, Resulted NO GROWTH AFTER 2 DAYS Medications Current Medications Sodium Chloride 1,000 ml @ 150 mls/hr 1X ONCE IV Last administered on 05/04/19at 10:43; Start 05/04/19 at 10:30; Stop 05/04/19 at 17:09; Status DC Lorazepam (Ativan Inj) 1 mg 1X ONCE IVP Last administered on 05/04/19at 10:47; Start 05/04/19 at 10:30; Stop 05/04/19 at 10:31; Status DC Sodium Chloride 1,000 ml @ 1,000 mls/hr 1X ONCE IV Last administered on 05/04/19at 11:00; Start 05/04/19 at 11:00; Stop 05/04/19 at 12:21; Status DC Sodium Chloride 1,000 ml @ 1,000 mls/hr 1X ONCE IV Last administered on 05/04/19at 12:55; Start 05/04/19 at 11:00; Stop 05/04/19 at 12:21; Status DC Piperacillin Sod/ Tazobactam Sod 3.375 gm/Sodium Chloride 50 ml @ 100 mls/hr 1X ONCE IV Last administered on 05/04/19at 12:56; Start 05/04/19 at 11:00; Stop 05/04/19 at 11:29; Status DC Vancomycin HCl 250 ml @ 250 mls/hr 1X ONCE IV Last administered on 05/04/19at 15:06; Start 05/04/19 at 11:00; Stop 05/04/19 at 12:21; Status DC Levofloxacin/ Dextrose 150 ml @ 100 mls/hr 1X ONCE IV Last administered on 05/04/19at 13:31; Start 05/04/19 at 11:00; Stop 05/04/19 at 12:29; Status DC Sodium Chloride 1,000 ml @ 150 mls/hr Q6H40M IV Last administered on 05/05/19at 10:01; Start 05/04/19 at 11:04; Stop 05/05/19 at 11:03; Status DC Diphtheria/ Tetanus/Acell Pertussis (Boostrix) 0.5 ml ONCE ONCE VAX IM Last administered on 05/04/19at 13:29; Start 05/04/19 at 12:00; Stop 05/04/19 at 12:21; Status DC Pantoprazole Sodium (PROTONIX VIAL for IV PUSH) 40 mg 1X ONCE IVP Last administered on 05/04/19at 15:02; Start 05/04/19 at 13:30; Stop 05/04/19 at 13:31; Status DC Lorazepam (Ativan Inj) 1 mg PRN Q2HR PRN IVP ANXIETY / AGITATION Last administered on 05/05/19at 04:00; Start 05/04/19 at 13:45 Nicotine (Nicoderm Cq 21mg) 1 patch PRN DAILY PRN TD SMOKING CESSATION Last administered on 05/05/19at 11:42; Start 05/04/19 at 20:15 Ondansetron HCl (Zofran) 4 mg PRN Q4HRS PRN IVP NAUSEA/VOMITING 1ST CHOICE Last administered on 05/04/19at 23:16; Start 05/04/19 at 22:45 Morphine Sulfate (Morphine Sulfate) 2 mg PRN Q4HRS PRN IV SEVERE PAIN 7-10 Last administered on 05/05/19at 23:24; Start 05/04/19 at 22:45 Piperacillin Sod/ Tazobactam Sod (Zosyn Per Pharmacy) 1 each PRN DAILY PRN MC SEE COMMENTS; Start 05/05/19 at 10:15 Piperacillin Sod/ Tazobactam Sod 2.25 gm/Sodium Chloride 50 ml @ 100 mls/hr Q6HRS IV Last administered on 05/06/19at 05:21; Start 05/05/19 at 11:00 Pantoprazole Sodium (PROTONIX VIAL for IV PUSH) 40 mg DAILYAC IVP Last administered on 05/06/19at 08:12; Start 05/05/19 at 13:00 Labetalol HCl (Normodyne Iv Push) 10 mg PRN Q10MIN PRN IVP ELEVATED BP, SEE COMMENTS; Start 05/05/19 at 14:45 Acetaminophen (Tylenol) 650 mg PRN Q6HRS PRN PO TEMP > 100.4F; Start 05/05/19 at 14:45 Acetaminophen (Tylenol Supp) 650 mg PRN Q4HRS PRN [place] TEMP > 100.4F; Start 05/05/19 at 14:45 Aspirin (Ecotrin) 325 mg DAILYWBKFT PO ; Start 05/06/19 at 08:00 Aspirin (Aspirin Rectal Supp) 300 mg PRN DAILY PRN [place] IF UNABLE TO TAKE PO Last administered on 05/06/19at 08:12; Start 05/05/19 at 14:45 Vitals/I & O Vital Sign - Last 24 Hours 05/05/19 05/05/19 05/05/19 05/05/19 15:00 19:00 20:01 23:00 Temp 97.8 98.1 98.4 97.8 98.1 98.4 Pulse 86 85 66 Resp 22 20 22 B/P (MAP) 108/55 (72) 129/64 (85) 105/66 (79) Pulse Ox 92 91 90 O2 Delivery Nasal Cannula Room Air Nasal Cannula Nasal Cannula O2 Flow Rate 2.0 2.0 05/05/19 05/06/19 05/06/19 05/06/19 23:24 03:00 07:00 10:56 Temp 97.6 97.8 98.6 97.6 97.8 98.6 Pulse 93 84 78 Resp 24 20 20 20 B/P (MAP) 146/70 (95) 143/70 (94) 104/58 (73) Pulse Ox 91 90 94 O2 Delivery Nasal Cannula Nasal Cannula Nasal Cannula Nasal Cannula O2 Flow Rate 3.0 3.0 4.0 Intake and Output 05/05/19 05/05/19 05/06/19 15:00 23:00 07:00 Intake Total 0 ml 0 ml Balance 0 ml 0 ml Images MRI BRAIN W/O CONTRAST Date: 05/05/2019 2:31 PM Indication: Cerebrovascular accident. Altered mental status. Comparison: Correlation is made to the CT of the head from 05/04/2019. Technique: Multiplanar multisequence MRI of the brain was performed without intravenous contrast using the standard protocol. Findings: The study is severely degraded due to motion artifact. Multifocal restricted diffusion with greatest involvement of the posterior and medial left temporal lobe and left thalamus but with smaller foci of involvement involving the left occipital lobe. There appears to be a focus of restricted diffusion at the far superior aspect left cerebellar hemisphere on image 7 series 7. Faint additional areas of increased signal on the diffusion-weighted sequence such as within the bilateral subcortical white matter in the posterior frontal region seen bilaterally on image 18 series 7, right temporal-occipital region on images 11 and 12 series 7 and lateral aspect of the left cerebellar hemisphere on image 4 series 7 are indeterminant could represent regions of T2 shine through from prior ischemia when correlating with T2 sequences. There is the suggestion of faint petechial staining at the right temporal-occipital region further suggesting a remote ischemic event at this location. Scattered foci of bihemispheric subcortical white matter and periventricular FLAIR signal elevation which also involves the wendy. No confluent intracranial hemorrhage. Generalized parenchymal volume loss with ex vacuo ventricular prominence. Extra-axial CSF signal diffusely along the right more so than left cerebellar hemispheres with intermixed tracking vessels. No extra-axial fluid collection with associated mass effect. No midline shift. IMPRESSION: 1. The study is severely degraded due to motion artifact 2. Multifocal restricted diffusion compatible with acute or subacute infarcts mainly involving the posterior and medial left temporal lobe and left thalamus but with intermittent involvement of the left occipital lobe as well. Potential small focus of restricted diffusion within the far superior aspect left cerebellar hemisphere. Additional less hyperintense regions of increased signal on the diffusion-weighted sequence elsewhere, as detailed above, is indeterminant for recent ischemia and could represent T2 shine through from prior infarcts. 3. Findings involving the bihemispheric subcortical and periventricular white matter as well as the brainstem in keeping with the sequela of chronic microvascular ischemic change. Probable faint area of petechial staining at the right temporal-occipital region from a remote infarct. No confluent intracranial hemorrhage. 4. Senescent changes with prominence of the CSF containing spaces. No localized extra-axial fluid collection with mass effect on the brain. No midline shift. Carotid Doppler sonogram. HISTORY: Cerebral infarction. TECHNIQUE: Ellis scale and color Doppler sonographic evaluation of the neck with spectral waveform analysis was performed and static images are submitted for review. FINDINGS: The exam is limited due to combative patient behavior. The peak systolic velocity within the right common carotid artery is 83 cm/sec. The peak systolic velocity within the right internal carotid artery is 75 cm/sec and the end diastolic velocity within the right internal carotid artery is 17 cm/sec. The right ICA/CCA ratio is 0.91. The peak systolic velocity within the left common carotid artery is 91 cm/sec. The peak systolic velocity within the left internal carotid artery is 85 cm/sec and the end diastolic velocity within the left internal carotid artery is 20 cm/sec. The left ICA/CCA ratio is 0.97. There is normal antegrade flow within the left vertebral artery. The right vertebral artery is not seen due to patient combative behavior. IMPRESSION: No Doppler evidence of hemodynamically significant stenosis, with evaluation limited due to patient combative behavior. Echo: LEFT VENTRICLE The left ventricle is normal size. There is normal left ventricular wall thickness. The left ventricular systolic function is normal. The Ejection Frac tion is 55-60%. There is normal LV segmental wall motion. RIGHT VENTRICLE The right ventricle is normal size. There is normal right ventricular wall thickness. The right ventricular systolic function is normal. ATRIA The left atrium size is normal. The right atrium size is normal. Interatrial septum not well visualized. AORTIC VALVE The aortic valve is thickened but opens well. Doppler and Color Flow revealed no significant aortic regurgitation. There is no significant aortic valvular stenosis. MITRAL VALVE The mitral valve is thickened but opens well. There is no evidence of mitral valve prolapse. There is no mitral valve stenosis. Doppler and Color-flow revealed trace to mild mitral regurgitation. TRICUSPID VALVE The tricuspid valve is normal in structure and function. Doppler and Color Flow revealed mild tricuspid regurgitation with an estimated PAP of 61 mmHg. There is no tricuspid valve stenosis. PULMONIC VALVE The pulmonic valve is not well visualized. Doppler and Color Flow revealed no pulmonic valvular regurgitation. GREAT VESSELS The aortic root is normal in size. The IVC was not visualized. PERICARDIAL EFFUSION There is no evidence of significant pericardial effusion. Critical Notification Critical Value: No <Conclusion> The left ventricular systolic function is normal. The Ejection Fraction is 55-60%. There is normal LV segmental wall motion. Trace to mild mitral regurgitation. Mild tricuspid regurgitation with an estimated PAP of 61 mmHg. There is no evidence of significant pericardial effusion. CARMEN RITTER MD May 06, 2019 13:12
--- NOTE | 2019-05-06 14:59 | PDOC ---
[facility] PROGRESS NOTE Chief Complaint Chief Complaint Chief Complain: Fall Mental status change L. Sided Stroke Dementia Lactic acidosis Anemia Possible emphysema History of Present Illness History of Present Illness 05/06/19 Pt seen and examined. Pt was more responsive today. Pt attempted to obey commands during PE, but was unable to comply well enough to perform adequate neuro exam. PT denies any n/v/f/c. Pts family was present and informed nurse that they are open to potential plans for palliative care. CHARLES nurse. Reviewed Pt's charts. 05/05/19 Pt seen and examined PT no responsive during meeting, was unable to wake pt. Pt's family was present sduring encounter. 4 members were present and said that Pt never goes to the doctor. Said Pt seemed like normal self as of 04/21/19- pt was walking around and able to carry on a conversation at that point. Pt's chart was reviewed. CHARLES nurse. Vitals/I&O Vitals/I&O: Vital Signs Date Time Temp Pulse Resp B/P (MAP) Pulse Ox O2 Delivery O2 Flow Rate FiO2 05/06/19 10:56 98.6 78 20 104/58 (73) 94 Nasal Cannula 4.0 98.6 I & O 05/05/19 05/05/19 05/06/19 15:00 23:00 07:00 Intake Total 0 ml 0 ml Balance 0 ml 0 ml Physical Exam Physical Exam: GENERAL: Alert, somnolent, barely arousable gentleman, not in distress. VITAL SIGNS: Stable, afebrile. HEENT: Both pupils are round and reacting. No conjunctival lesion, no lesion in the mouth. NECK: Supple, no JVP, no lymphadenopathy. LUNGS: Decreased breath sounds bilaterally. HEART: S1, S2 regular. No gallop or murmur. ABDOMEN: Soft, nontender, no organomegaly. EXTREMITIES: No edema, cyanosis. SKIN: Unremarkable. NEUROLOGIC: The patient neurologically does not follow command; encephalopathic, barely arousable; some spontaneous extremity movements are present, although it cannot be judged clearly. General: Other (NAD, alseep, nonresponsive ) Heart: Regular rate, No murmurs Lungs: Clear Abdomen: Normal bowel sounds, No tenderness Extremities: No clubbing, No cyanosis, No edema Skin: No rashes, No breakdown Labs Labs: Laboratory Tests Test 05/06/19 05:00 White Blood Count 7.8 x10^3/uL (4.0-11.0) Red Blood Count 2.86 x10^6/uL (4.30-5.70) Hemoglobin 9.4 g/dL (13.0-17.5) Hematocrit 27.9 % (39.0-53.0) Mean Corpuscular Volume 98 fL (79-100) Mean Corpuscular Hemoglobin 33 pg (25-35) Mean Corpuscular Hemoglobin Concent 34 g/dL (31-37) Red Cell Distribution Width 17.9 % (11.5-14.5) Platelet Count 127 x10^3/uL (140-400) Neutrophils (%) (Auto) 81 % (31-73) Lymphocytes (%) (Auto) 10 % (24-48) Monocytes (%) (Auto) 9 % (0-9) Eosinophils (%) (Auto) 0 % (0-3) Basophils (%) (Auto) 0 % (0-3) Neutrophils # (Auto) 6.4 x10^3/uL (1.8-7.7) Lymphocytes # (Auto) 0.7 x10^3/uL (1.0-4.8) Monocytes # (Auto) 0.7 x10^3/uL (0.0-1.1) Eosinophils # (Auto) 0.0 x10^3/uL (0.0-0.7) Basophils # (Auto) 0.0 x10^3/uL (0.0-0.2) Sodium Level 144 mmol/L (136-145) Potassium Level 4.2 mmol/L (3.5-5.1) Chloride Level 111 mmol/L (98-107) Carbon Dioxide Level 16 mmol/L (21-32) Anion Gap 17 (6-14) Blood Urea Nitrogen 29 mg/dL (8-26) Creatinine 1.8 mg/dL (0.7-1.3) Estimated GFR (Cockcroft-Gault) 35.8 Glucose Level 76 mg/dL (70-99) Calcium Level 8.7 mg/dL (8.5-10.1) Triglycerides Level 109 mg/dL (0-150) Cholesterol Level 135 mg/dL (0-200) LDL Cholesterol, Calculated 79 mg/dL (0-100) VLDL Cholesterol, Calculated 22 mg/dL (0-40) Non-HDL Cholesterol Calculated 101 mg/dL (0-129) HDL Cholesterol 34 mg/dL (40-60) Cholesterol/HDL Ratio 4.0 Review of Systems Review of Systems: Gen: Denies f/c GI: denies N/V Neuro: family says pt is not at baseline mentation. Pt was able to speak today and attempted to obey commands during PE Extremites: Pt denies pain in extemities. Pt unable to move RUE and RLE. Hd limited movement of L UE/ LE. Assessment and Plan Assessmemt and Plan Assessment Fall Mental status change L. Sided Stroke Dementia Lactic acidosis Anemia Possible emphysema R. sided weakness Plan Neuro consulted and following Plan to discuss palliative care with pt's family Pt on Aspirin 325 for stroke ppx DVT prophylaxis Echo performed- normal LV EF 55-60%; PAP of 61mmHg; mild tricuspid and mitral valve regurgitation. ID consulted and following- Continue Zosyn PT/ OT to regain R. sided function. The left ventricular systolic function is normal. The Ejection Fraction is 55-60%. There is normal LV segmental wall motion. Trace to mild mitral regurgitation. Mild tricuspid regurgitation with an estimated PAP of 61 mmHg. There is no evidence of significant pericardial effusion. Comment Review of Relevant I have reviewed the following items alyssa (where applicable) has been applied. TATE LEWIS III DO May 06, 2019 14:59
[2019-05-06 15:00] VITALS: BP 143/73
[2019-05-06 19:00] VITALS: BP 159/46
--- NOTE | 2019-05-06 19:04 | NUR ---
Report called to LALITA Schultz on [facility]. Patient discharging and [facility], transferred via bed.
[2019-05-06] MEDS: MORPHINE SULFATE 20 MG/ML CONC SOLUTION. SL PRN ×2 (19:37→22:20)
== END 2019-05-06 22:50 | disposition hospice, home (50) | DRG 871 ==
LOC: ER 09:23 → ED HOLD 10:18 → CVICU 17:04 → 5 SOUTH 05-06 19:29
PROVIDERS: ADMIT Internal Medicine; ATTEND Internal Medicine
DX: A41.9 Sepsis, unspecified organism (principal); I63.9 Cerebral infarction, unspecified; G93.41 Metabolic encephalopathy; N17.9 Acute kidney failure, unspecified; M62.82 Rhabdomyolysis; E87.2 Acidosis; R47.01 Aphasia; F03.90 Unspecified dementia, unspecified severity, without behavioral disturbance, psychotic disturbance, mood disturbance, and anxiety; M19.90 Unspecified osteoarthritis, unspecified site; I10 Essential (primary) hypertension; J43.9 Emphysema, unspecified; D64.9 Anemia, unspecified; F17.200 Nicotine dependence, unspecified, uncomplicated; R29.810 Facial weakness; W06.XXXA Fall from bed, initial encounter; Y93.89 Activity, other specified; Y92.122 Bedroom in nursing home as the place of occurrence of the external cause; Y99.8 Other external cause status; Z82.49 Family history of ischemic heart disease and other diseases of the circulatory system
CPT/HCPCS: 36415; 36600; 70450; 70551; 71045; 80048; 80053; 80061; 80307; 81001; 82140; 82550; 82805; 83605; 83735; 83880; 84484; 85025; 85610; 85730; 87040; 90471; 90715; 93005; 93306; 93880; C9113; G0480; J1956; J2060; J2270; J2405; J2543; J3370; J7030; 92526; 92610; G0378

== ENCOUNTER 2019-05-06 22:50 | Inpatient (IN) | payer OTHER ==
[~2019-05-06] VITALS: Ht 175.3 cm; Wt 54.5 kg
[2019-05-06] MEDS ORDERED: NICOTINE 21MG PATCH. TD PRN (23:45)
[2019-05-06] MEDS ORDERED: BISACODYL 10 MG SUPP.RECT. PR PRN (23:45)
[2019-05-06] MEDS ORDERED: ACETAMINOPHEN 650 MG SUPP.RECT. PR PRN (23:45)
[2019-05-06] MEDS ORDERED: ONDANSETRON ODT 4 MG TAB.RAPDIS. PO PRN (23:45)
[2019-05-07] MEDS: LORazepam INTENSOL 2 MG/ML ORAL.CONC SL PRN (04:37)
[2019-05-07 07:00] VITALS: BP 123/69
[2019-05-07] MEDS: ATROPINE 1% OPHTH SOLUTION 5ML BOTTLE. SL PRN (09:27)
[2019-05-07] MEDS: SCOPOLAMINE 1.5MG PATCH. TD SCH (14:42)
[2019-05-07] MEDS: MORPHINE SULFATE 20 MG/ML CONC SOLUTION. SL PRN (17:30)
--- NOTE | 2019-05-07 18:29 | PDOC1 ---
History and Physical Date of Admission Date of Admission 05/07/2019 Identification/Chief Complaint Chief Complaint Transition to hospice care Source Source: Chart review History of Present Illness History of Present Illness This is an elderly male who lives in a group home who fell out of his bed. He has baseline dementia but the group home was concerned about him so sending to the emergency room. While here in the ER he has a lactic acidosis appears to be quite encephalopathic He is unable to contribute any other information He's currently being examined in room 2 where we are straight cathetering him and getting an ABG Lactic acid was high at the beginning of his hospital stay. The patient was noted to have mental status status change and was sent for imaging studies which revealed L. Sided Stroke Given his history of Dementia and poor prognosis overall the patient decided to transition to palliative care part of his workup included an echocardiogram with the following results Echo performed- normal LV EF 55-60%; PAP of 61mmHg; mild tricuspid and mitral valve regurgitation. The left ventricular systolic function is normal. The Ejection Fraction is 55-60%. There is normal LV segmental wall motion. Trace to mild mitral regurgitation. Mild tricuspid regurgitation with an estimated PAP of 61 mmHg. There is no evidence of significant pericardial effusion. Patient my evaluation is in no acute distress. The patient is receiving appropriate care according to palliative care orders placed in the computer. No acute distress Past Medical History Cardiovascular: HTN GI: Other Past Surgical History Past Surgical History: Hernia Repair, No pertinent history Current Medications Current Medications Current Medications Medications (Trade) Dose Ordered Sig/Tru Start Time Stop Time Status Last Admin Dose Admin Acetaminophen (Tylenol Supp) 650 mg PRN Q6HRS PRN 05/06/19 23:45 Atropine Sulfate (Isopto Atropine) 3 drop PRN Q3HRS PRN 05/06/19 23:45 05/07/19 09:27 3 DROP Bisacodyl (Dulcolax Supp) 10 mg PRN DAILY PRN 05/06/19 23:45 Lorazepam (Ativan Intensol) 1 mg PRN Q2HR PRN 05/06/19 23:45 05/07/19 04:37 1 MG Morphine Sulfate (Roxanol Conc) 10 mg PRN Q2HR PRN 05/06/19 23:45 05/07/19 17:30 10 MG Nicotine (Nicoderm Cq 21mg) 1 patch PRN DAILY PRN 05/06/19 23:45 Ondansetron HCl (Zofran Odt) 4 mg PRN Q6HRS PRN 05/06/19 23:45 Scopolamine (Transderm-Scop) 1 patch Q3DAYS 05/07/19 14:00 05/07/19 14:42 1 PATCH Allergies Allergies Allergies Coded Allergies Type Severity Reaction Last Updated Verified No Known Drug Allergies 05/04/19 No ROS Review of System Unable to assess Physical Exam Physical Exam GEN.: No apparent distress. Alert and oriented. HEENT: Head is normocephalic, atraumatic NECK: Supple. LUNGS: Clear to auscultation. HEART: RRR, S1, S2 present. Peripheral pulses intact ABDOMEN: Soft, nontender. Positive bowel sounds. EXTREMITIES: Without any cyanosis. NEUROLOGIC: Normal speech, normal tone PSYCHIATRIC: Normal affect, normal mood. SKIN: No ulcerations Vitals Vitals Vital Signs Date Time Temp Pulse Resp B/P (MAP) Pulse Ox O2 Delivery O2 Flow Rate FiO2 05/07/19 17:30 18 83 Nasal Cannula 05/07/19 08:00 4.0 05/07/19 07:00 97.6 62 123/69 (87) 97.6 VTE Prophylaxis Ordered VTE Prophylaxis Devices: No VTE Pharmacological Prophylaxi: No Assessment/Plan Assessment/Plan 1. Encephalopathy, secondary to left sided stroke 2. Lactic acidosis may have been secondary to dehydration 3. Suspected aspiration with encephalopathy. 4. Chronic obstructive pulmonary disease. 5. Renal failure. Plan: Continue with supportive measures Continue with palliative care measures Reassurance provided DNR status JANET BARRY MD May 07, 2019 18:29
[2019-05-07 19:00] VITALS: BP 164/64
[2019-05-08] MEDS: MORPHINE SULFATE 20 MG/ML CONC SOLUTION. SL PRN ×3 (06:58→22:48)
[2019-05-08 07:59] VITALS: BP 132/58
[2019-05-08] MEDS: ATROPINE 1% OPHTH SOLUTION 5ML BOTTLE. SL PRN (11:23)
--- NOTE | 2019-05-08 11:53 | PDOC ---
PROGRESS NOTES Chief Complaint Chief Complaint 1. acute on chronic Encephalopathy, secondary to left sided stroke 2. Lactic acidosis dehydration 3. Suspected aspiration with encephalopathy. 4. Chronic obstructive pulmonary disease. 5. Renal failure. History of Present Illness History of Present Illness HOSPICE care changed PRN pain med to q hour Continue with supportive measures Continue with palliative care measures DNR status Vitals Vitals Vital Signs Date Time Temp Pulse Resp B/P (MAP) Pulse Ox O2 Delivery O2 Flow Rate FiO2 05/08/19 11:22 26 91 Room Air 05/08/19 07:59 97.6 84 132/58 (82) 97.6 05/08/19 07:58 4.0 Physical Exam General: mild distress Heart: Regular rate Lungs: Clear Extremities: Other Skin: Other Comment Review of Relevant I have reviewed the following items alyssa (where applicable) has been applied. Medications Current Medications Acetaminophen (Tylenol Supp) 650 mg PRN Q6HRS PRN [place] MILD PAIN / TEMP; Start 05/06/19 at 23:45 Lorazepam (Ativan Intensol) 1 mg PRN Q2HR PRN SL ANXIETY / AGITATION Last a dministered on 05/07/19at 04:37; Start 05/06/19 at 23:45 Nicotine (Nicoderm Cq 21mg) 1 patch PRN DAILY PRN TD SMOKING CESSATION; Start 05/06/19 at 23:45 Ondansetron HCl (Zofran Odt) 4 mg PRN Q6HRS PRN PO NAUSEA/VOMITING; Start 05/06/19 at 23:45 Morphine Sulfate (Roxanol Conc) 10 mg PRN Q2HR PRN SL PAIN Last administered on 05/08/19at 11:22; Start 05/06/19 at 23:45 Atropine Sulfate (Isopto Atropine) 3 drop PRN Q3HRS PRN SL SECRETIONS Last administered on 05/08/19at 11:23; Start 05/06/19 at 23:45 Bisacodyl (Dulcolax Supp) 10 mg PRN DAILY PRN [place] CONSTIPATION; Start 05/06/19 at 23:45 Scopolamine (Transderm-Scop) 1 patch Q3DAYS TD Last administered on 05/07/19at 14:42; Start 05/07/19 at 14:00 Vitals/I & O Vital Sign - Last 24 Hours 05/07/19 05/07/19 05/07/19 05/08/19 17:30 18:36 19:00 06:58 Temp 98.2 98.2 Pulse 66 Resp 18 18 17 16 B/P (MAP) 164/64 (97) Pulse Ox 83 83 90 90 O2 Delivery Nasal Cannula Nasal Cannula Room Air Nasal Cannula O2 Flow Rate 4.0 4.0 05/08/19 05/08/19 05/08/19 07:58 07:59 11:22 Temp 97.6 97.6 Pulse 84 Resp 18 20 26 B/P (MAP) 132/58 (82) Pulse Ox 90 91 91 O2 Delivery Nasal Cannula Room Air Room Air O2 Flow Rate 4.0 DONTAE BELCHER MD May 08, 2019 11:53
[2019-05-08 19:00] VITALS: BP 121/70
[2019-05-09] MEDS: MORPHINE SULFATE 20 MG/ML CONC SOLUTION. SL PRN ×5 (03:53→23:08)
[2019-05-09 07:15] VITALS: BP 124/73
[2019-05-09] MEDS: ATROPINE 1% OPHTH SOLUTION 5ML BOTTLE. SL PRN (09:36)
--- NOTE | 2019-05-09 10:19 | PDOC ---
PROGRESS NOTES Chief Complaint Chief Complaint acute on chronic Encephalopathy, secondary to left sided stroke Lactic acidosis dehydration Suspected aspiration with encephalopathy. Chronic obstructive pulmonary disease. Renal failure. DNR - hospice care History of Present Illness History of Present Illness 05/08: HOSPICE Admission, changed PRN pain med to q hour He is not responding verbally. Family bedside. Appears comfortable Plan: Continue with supportive measures Continue with palliative care measures DNR status Vitals Vitals Vital Signs Date Time Temp Pulse Resp B/P (MAP) Pulse Ox O2 Delivery O2 Flow Rate FiO2 05/09/19 09:35 22 93 Nasal Cannula 4.0 05/09/19 07:15 97.9 76 124/73 (90) 97.9 Physical Exam General: mild distress Heart: Regular rate Lungs: Clear Extremities: Other Skin: Other Comment Review of Relevant I have reviewed the following items alyssa (where applicable) has been applied. Medications Current Medications Acetaminophen (Tylenol Supp) 650 mg PRN Q6HRS PRN [place] MILD PAIN / TEMP; Start 05/06/19 at 23:45 Lorazepam (Ativan Intensol) 1 mg PRN Q2HR PRN SL ANXIETY / AGITATION Last administered on 05/07/19at 04:37; Start 05/06/19 at 23:45 Nicotine (Nicoderm Cq 21mg) 1 patch PRN DAILY PRN TD SMOKING CESSATION; Start 05/06/19 at 23:45 Ondansetron HCl (Zofran Odt) 4 mg PRN Q6HRS PRN PO NAUSEA/VOMITING; Start 05/06/19 at 23:45 Morphine Sulfate (Roxanol Conc) 10 mg PRN Q2HR PRN SL PAIN Last administered on 05/09/19at 09:35; Start 05/06/19 at 23:45 Atropine Sulfate (Isopto Atropine) 3 drop PRN Q3HRS PRN SL SECRETIONS Last administered on 05/09/19at 09:36; Start 05/06/19 at 23:45 Bisacodyl (Dulcolax Supp) 10 mg PRN DAILY PRN [place] CONSTIPATION; Start 05/06/19 at 23:45 Scopolamine (Transderm-Scop) 1 patch Q3DAYS TD Last administered on 05/07/19at 14:42; Start 05/07/19 at 14:00 Vitals/I & O Vital Sign - Last 24 Hours 05/08/19 05/08/19 05/08/1911/20 11:22 12:22 19:00 20:24 Temp 98.4 98.4 Pulse 80 Resp 26 18 18 B/P (MAP) 121/70 (87) Pulse Ox 91 91 93 O2 Delivery Room Air Room Air Nasal Cannula O2 Flow Rate 4.0 05/08/19 05/09/19 05/09/19 05/09/19 22:48 00:09 03:53 05:01 Resp 14 15 16 16 Pulse Ox 93 93 93 O2 Delivery Room Air Nasal Cannula Room Air Room Air 05/09/19 05/09/19 05/09/19 07:15 07:25 09:35 Temp 97.9 97.9 Pulse 76 Resp 16 15 22 B/P (MAP) 124/73 (90) Pulse Ox 95 93 93 O2 Delivery Room Air Room Air Nasal Cannula O2 Flow Rate 4.0 Intake and Output 05/08/19 05/08/19 05/09/19 15:00 23:00 07:00 Intake Total 0 ml 0 ml Balance 0 ml 0 ml TOI ROBERT MD May 09, 2019 10:19
[2019-05-09] MEDS: LORazepam INTENSOL 2 MG/ML ORAL.CONC SL PRN (11:20)
[2019-05-09 19:00] VITALS: BP 127/62
[2019-05-10 07:00] VITALS: BP 142/69
[2019-05-10] MEDS: MORPHINE SULFATE 20 MG/ML CONC SOLUTION. SL PRN (09:09)
[2019-05-10] MEDS: ATROPINE 1% OPHTH SOLUTION 5ML BOTTLE. SL PRN (09:09)
[2019-05-10] MEDS: SCOPOLAMINE 1.5MG PATCH. TD SCH (09:10)
[2019-05-10] MEDS: LORazepam INTENSOL 2 MG/ML ORAL.CONC SL PRN (10:51)
--- NOTE | 2019-05-10 12:01 | PDOC ---
PROGRESS NOTES Chief Complaint Chief Complaint acute on chronic Encephalopathy, secondary to left sided stroke Lactic acidosis dehydration Suspected aspiration with encephalopathy. Chronic obstructive pulmonary disease. Renal failure. DNR - hospice care History of Present Illness History of Present Illness comfused and got agitated as i examine him MUltiple fam members at bedside STRICT NPO RN asks to make hospice med alyssa instead of prn PLAN: OK for [facility] hospice meds DNR outside DNR form signed Dw fam and RN Vitals Vitals Vital Signs Date Time Temp Pulse Resp B/P (MAP) Pulse Ox O2 Delivery O2 Flow Rate FiO2 05/10/19 07:00 98.5 80 142/69 (93) 95 Room Air 98.5 05/09/19 23:57 18 05/09/19 13:23 4.0 Physical Exam General: mild distress Heart: Regular rate, Normal S1, Normal S2 Lungs: Clear Abdomen: Normal bowel sounds Extremities: No clubbing, No cyanosis, Other Skin: No rashes, No breakdown, No significant lesion, Other (senile skin turgor) Review of Systems Review of Systems confused, limited ROS Comment Review of Relevant I have reviewed the following items alyssa (where applicable) has been applied. Medications Current Medications Acetaminophen (Tylenol Supp) 650 mg PRN Q6HRS PRN [place] MILD PAIN / TEMP; Start 05/06/19 at 23:45 Lorazepam (Ativan Intensol) 1 mg PRN Q2HR PRN SL ANXIETY / AGITATION Last administered on 05/10/19at 10:51; Start 05/06/19 at 23:45; Stop 05/10/19 at 11:01; Status DC Nicotine (Nicoderm Cq 21mg) 1 patch PRN DAILY PRN TD SMOKING CESSATION; Start 05/06/19 at 23:45 Ondansetron HCl (Zofran Odt) 4 mg PRN Q6HRS PRN PO NAUSEA/VOMITING; Start 05/06/19 at 23:45 Morphine Sulfate (Roxanol Conc) 10 mg PRN Q2HR PRN SL PAIN Last administered on 05/10/19at 09:09; Start 05/06/19 at 23:45; Stop 05/10/19 at 11:01; Status DC Atropine Sulfate (Isopto Atropine) 3 drop PRN Q3HRS PRN [place] SECRETIONS Last administered on 05/10/19at 09:09; Start 05/06/19 at 23:45 Bisacodyl (Dulcolax Supp) 10 mg PRN DAILY PRN [place] CONSTIPATION; Start 05/06/19 at 23:45 Scopolamine (Transderm-Scop) 1 patch Q3DAYS TD Last administered on 05/10/19at 09:10; Start 05/07/19 at 14:00 Lorazepam (Ativan Intensol) 1 mg Q2H SL ; Start 05/10/19 at 13:00 Morphine Sulfate (Roxanol Conc) 10 mg Q2HR SL ; Start 05/10/19 at 12:00 Vitals/I & O Vital Sign - Last 24 Hours 05/09/19 05/09/19 05/09/19 05/09/19 12:23 13:23 19:00 19:05 Temp 97.9 97.9 Pulse 83 Resp 18 16 B/P (MAP) 127/62 (83) Pulse Ox 93 93 88 O2 Delivery Nasal Cannula Nasal Cannula Room Air Room Air O2 Flow Rate 4.0 4.0 05/09/19 05/09/19 05/10/19 23:08 23:57 07:00 Temp 98.5 98.5 Pulse 80 Resp 17 18 B/P (MAP) 142/69 (93) Pulse Ox 95 O2 Delivery Room Air Room Air Room Air CATA MIJARES MD May 10, 2019 12:01
[2019-05-10] MEDS: MORPHINE SULFATE 20 MG/ML CONC SOLUTION. SL SCH ×4 (12:09→18:10)
[2019-05-10] MEDS ORDERED: LORazepam INTENSOL 2 MG/ML ORAL.CONC SL SCH (13:00)
[2019-05-10] MEDS: LORazepam INTENSOL 2 MG/ML ORAL.CONC SL SCH ×7 (14:09→19:59)
[2019-05-10 19:00] VITALS: BP 77/39
[2019-05-10] MEDS ORDERED: MORPHINE SULFATE 20 MG/ML CONC SOLUTION. SL PRN (19:00)
--- NOTE | 2019-05-10 19:13 | NUR ---
report given to LALITA Rivera. meds reviewed.
--- NOTE | 2019-05-10 20:45 | NUR ---
Notified [facility] of pt. . Nurse to call back.
--- NOTE | 2019-05-10 22:20 | NUR ---
Pt. released to home and security. All belongings taken by pt's daughter Gisselle Garcia.
== END 2019-05-10 22:20 | disposition expired | DRG 65 ==
LOC: 5 SOUTH 22:50
PROVIDERS: ADMIT Internal Medicine; ATTEND Internal Medicine
DX: I63.9 Cerebral infarction, unspecified (principal); G93.40 Encephalopathy, unspecified; E86.0 Dehydration; F03.90 Unspecified dementia, unspecified severity, without behavioral disturbance, psychotic disturbance, mood disturbance, and anxiety; I08.1 Rheumatic disorders of both mitral and tricuspid valves; I10 Essential (primary) hypertension; J44.9 Chronic obstructive pulmonary disease, unspecified; N19 Unspecified kidney failure; Z51.5 Encounter for palliative care; Z66 Do not resuscitate; W18.39XA Other fall on same level, initial encounter; Y93.89 Activity, other specified; Y92.89 Other specified places as the place of occurrence of the external cause; Y99.8 Other external cause status
CPT/HCPCS: G0378